=== PATIENT | male | born 1935 | race Caucasian/White ===

== ENCOUNTER 2017-01-02 00:03 | Emergency (ER) | payer MEDICARE, BC ==
[~2017-01-02] VITALS: Ht 175.3 cm; Wt 68.0 kg
[~2017-01-02 00:03] MED LIST: ADALAT CC60 MG; AMOXICILLIN875 MG PO; ASPIR-8181 MG OR; ASPIRIN EC81 MG PO; AVELOX400 MG PO; C 250 PO; COREG12.5 MG OR; COREG6.25 MG PO; ERYTHROMYCIN O3.5 GM OS; FISH OIL1000 MG OR; FISH OIL1000 MG PO; FOSINOPRIL SODI20 MG PO; FOSINOPRIL10 MG OR; HYTRIN2 MG OR; LIPITOR80 MG OR; MONOPRIL20 MG OR; NIFEDIPINE20 MG OR; NIFEDIPINE20 MG PO; PLAVIX75 MG PO; PROTONIX40 M2 OR; TERAZOSIN2 MG OR; TRIAM/HCTZ1 CAP OR; VENTOLIN HFA IN; VITAMIN D1000 UNI1 PO; VITAMIN D1000 UNIT OR; [UNRECOGNIZED DRUG - OTHER] XX
[2017-01-02 00:27] LABS: HEMATOCRIT 38.2 % (39.0-50.0); HEMOGLOBIN 12.7 g/dl (14.0-18.0); IMMATURE GRANULOCYTES 0.3 % (0.0-1.0); MEAN CELL VOLUME 96.5 fL CALC (80.0-100.0); MEAN CORPUSCULAR HGB 32.1 pG CALC (26.0-32.0); MEAN CORPUSCULAR HGB CONC 33.2 g/L CALC (32.0-36.0); NEUT# 4.74 thou/uL (1.82-7.42); RED BLOOD COUNT 3.96 mill/uL (4.70-6.10); RED CELL DISTRI WIDTH 12.9 % (11.5-15.5)
[2017-01-02 00:38] LABS: ALBUMIN 3.8 g/dL (3.2-5.0); ALKALINE PHOSPHATASE 71 u/l (38-126); AMYLASE 92 u/l (30-110); ANION GAP 15 (6-22 (CALC)); BILIRUBIN, TOTAL 0.6 mg/dL (0.0-1.4); BUN 22 mg/dL (8-23); BUN/CREATININE RATIO 26 (12-20 (CALC)); CARBON DIOXIDE 26 mmol/l (22-30); CHLORIDE 101 mmol/l (95-108); CREATININE 0.9 mg/dL (0.7-1.3); GFR > 60 ML/MIN (>=60 (CALC)); GFR FOR AFR.AMER. > 60 ML/MIN (>=60 (CALC)); GLUCOSE 154 mg/dL (82-115); LIPASE 57 u/l (23-300); POTASSIUM 4.1 mmol/l (3.5-5.1); SGOT/AST 27 u/l (19-48); SGPT/ALT 40 u/l (11-66); SODIUM 138 mmol/l (137-146); TOTAL PROTEIN 6.9 g/dL (6.3-8.2)
[2017-01-02 00:50] LABS: MYOGLOBIN 138 ng/mL (0 - 121)
[2017-01-02 01:01] VITALS: BP 144/88
[2017-01-02 01:03] LABS: ACT PARTIAL THROMBO TIME 28.4 SECONDS (20.0-32.5); PROTHROMBIN TIME 10.8 SECONDS (9.0-12.5)
== END 2017-01-02 01:01 | disposition short-term general hospital (02) ==
LOC: ED 00:03
PROVIDERS: Emergency Medicine
DX: I21.3 ST elevation (STEMI) myocardial infarction of unspecified site (principal); I25.10 Atherosclerotic heart disease of native coronary artery without angina pectoris; I10 Essential (primary) hypertension; N40.0 Benign prostatic hyperplasia without lower urinary tract symptoms; I25.2 Old myocardial infarction; Z86.73 Personal history of transient ischemic attack (TIA), and cerebral infarction without residual deficits

== ENCOUNTER 2017-04-29 15:18 | Inpatient (IN) | payer MEDICARE, BC ==
[~2017-04-29] VITALS: Ht 175.3 cm; Wt 67.8 kg
[2017-04-29 16:02] LABS: HEMOGLOBIN 13.2 g/dl (14.0-18.0); IMMATURE GRANULOCYTES 0.2 % (0.0-1.0); MEAN CELL VOLUME 98.5 fL CALC (80.0-100.0); MEAN CORPUSCULAR HGB 32.5 pG CALC (26.0-32.0); NEUT# 3.23 thou/uL (1.82-7.42); RED BLOOD COUNT 4.06 mill/uL (4.70-6.10); RED CELL DISTRI WIDTH 14.1 % (11.5-15.5)
[2017-04-29 16:20] LABS: ALKALINE PHOSPHATASE 71 u/l (38-126); ANION GAP 15 (6-22 (CALC)); BILIRUBIN, TOTAL 0.6 mg/dL (0.0-1.4); BUN 23 mg/dL (8-23); BUN/CREATININE RATIO 26 (12-20 (CALC)); CALCIUM 9.4 mg/dL (8.4-10.2); CARBON DIOXIDE 25 mmol/l (22-30); CHLORIDE 106 mmol/l (95-108); CREATININE 0.9 mg/dL (0.7-1.3); GFR > 60 ML/MIN (>=60 (CALC)); GFR FOR AFR.AMER. > 60 ML/MIN (>=60 (CALC)); GLUCOSE 129 mg/dL (82-115); POTASSIUM 4.5 mmol/l (3.5-5.1); SGOT/AST 29 u/l (19-48); SGPT/ALT 26 u/l (11-66); SODIUM 142 mmol/l (137-146); TOTAL PROTEIN 6.5 g/dL (6.3-8.2)
[2017-04-29 16:31] LABS: MYOGLOBIN 77 ng/mL (0 - 121)
[2017-04-29 17:30] LABS: URINE BILIRUBIN - DIPSTICK NEGATIVE (NEGATIVE); URINE BLOOD DIPSTICK SMALL (NEGATIVE); URINE COLOR YELLOW; URINE GLUCOSE - DIPSTICK NEGATIVE (NEGATIVE); URINE KETONE NEGATIVE (NEGATIVE); URINE LEUK ESTERASE NEGATIVE (NEGATIVE); URINE NITRITE - DIPSTICK NEGATIVE (Negative); URINE PROTEIN - DIPSTICK 100 mg/dL (NEG-TRACE); URINE SPECIFIC GRAVITY >=1.030; URINE UROBILINOGEN - DIPSTICK 0.2 E.U./dL (0.2)
[2017-04-29 17:38] LABS: URINE CLARITY CLEAR; URINE WBC 0-2 WBC/hpf (0-5)
[2017-04-29 17:55] VITALS: BP 192/96
[2017-04-29 19:00] VITALS: BP 174/74
[2017-04-29 20:00] VITALS: BP 134/64
[2017-04-29 21:00] VITALS: BP 135/57
[2017-04-29 22:00] VITALS: BP 111/51
[2017-04-29 23:00] VITALS: BP 124/58
[2017-04-30] VITALS (19 sets, daily range): BP systolic 90–157; BP diastolic 37–73
[2017-04-30 05:33] LABS: HEMATOCRIT 37.7 % (39.0-50.0); HEMOGLOBIN 12.8 g/dl (14.0-18.0); MEAN CELL VOLUME 98.2 fL CALC (80.0-100.0); MEAN CORPUSCULAR HGB 33.3 pG CALC (26.0-32.0); RED BLOOD COUNT 3.84 mill/uL (4.70-6.10); RED CELL DISTRI WIDTH 14.2 % (11.5-15.5)
[2017-04-30 05:47] LABS: ANION GAP 13 (6-22 (CALC)); BUN 24 mg/dL (8-23); BUN/CREATININE RATIO 26 (12-20 (CALC)); CALCIUM 9.2 mg/dL (8.4-10.2); CALCULATED LDLCHOLESTEROL 102 mg/dL (62-129 (CALC)); CARBON DIOXIDE 30 mmol/l (22-30); CHLORIDE 104 mmol/l (95-108); CHOLESTEROL HDL RATIO 2.7 (<4.4 (CALC)); CREATININE 0.9 mg/dL (0.7-1.3); GFR > 60 ML/MIN (>=60 (CALC)); GFR FOR AFR.AMER. > 60 ML/MIN (>=60 (CALC)); GLUCOSE 99 mg/dL (82-115); HDL CHOLESTEROL 65 mg/dL (>=40); MAGNESIUM 1.8 mg/dL (1.6-2.3); POTASSIUM 3.9 mmol/l (3.5-5.1); SODIUM 142 mmol/l (137-146); TOTAL CHOLESTEROL 177 mg/dl (0-199); TOTAL TRIGLYCERIDES 47 mg/dl (30-149); VLDL CHOLESTROL 9 mg/dl (0-38 (CALC))
[2017-05-01] VITALS (12 sets, daily range): BP systolic 94–148; BP diastolic 41–73
[2017-05-02] VITALS (10 sets, daily range): BP systolic 90–145; BP diastolic 44–77
[2017-05-02 05:20] LABS: HEMATOCRIT 39.8 % (39.0-50.0); HEMOGLOBIN 13.1 g/dl (14.0-18.0); IMMATURE GRANULOCYTES 0.3 % (0.0-1.0); MEAN CELL VOLUME 97.3 fL CALC (80.0-100.0); MEAN CORPUSCULAR HGB CONC 32.9 g/L CALC (32.0-36.0); NEUT# 4.51 thou/uL (1.82-7.42); RED BLOOD COUNT 4.09 mill/uL (4.70-6.10); RED CELL DISTRI WIDTH 13.9 % (11.5-15.5)
[2017-05-02 05:34] LABS: ANION GAP 6 (6-22 (CALC)); BUN 21 mg/dL (8-23); BUN/CREATININE RATIO 28 (12-20 (CALC)); CARBON DIOXIDE 34 mmol/l (22-30); CHLORIDE 101 mmol/l (95-108); CREATININE 0.8 mg/dL (0.7-1.3); GFR > 60 ML/MIN (>=60 (CALC)); GFR FOR AFR.AMER. > 60 ML/MIN (>=60 (CALC)); GLUCOSE 104 mg/dL (82-115); POTASSIUM 3.6 mmol/l (3.5-5.1); SODIUM 137 mmol/l (137-146)
[2017-05-03 05:32] LABS: HEMATOCRIT 41.9 % (39.0-50.0); HEMOGLOBIN 14.3 g/dl (14.0-18.0); IMMATURE GRANULOCYTES 0.1 % (0.0-1.0); MEAN CELL VOLUME 96.5 fL CALC (80.0-100.0); MEAN CORPUSCULAR HGB 32.9 pG CALC (26.0-32.0); MEAN CORPUSCULAR HGB CONC 34.1 g/L CALC (32.0-36.0); NEUT# 4.96 thou/uL (1.82-7.42); RED BLOOD COUNT 4.34 mill/uL (4.70-6.10); RED CELL DISTRI WIDTH 13.7 % (11.5-15.5)
[2017-05-03 06:17] LABS: ANION GAP 17 (6-22 (CALC)); BUN 26 mg/dL (8-23); BUN/CREATININE RATIO 31 (12-20 (CALC)); CARBON DIOXIDE 28 mmol/l (22-30); CHLORIDE 100 mmol/l (95-108); CREATININE 0.8 mg/dL (0.7-1.3); GFR > 60 ML/MIN (>=60 (CALC)); GFR FOR AFR.AMER. > 60 ML/MIN (>=60 (CALC)); GLUCOSE 123 mg/dL (82-115); POTASSIUM 3.7 mmol/l (3.5-5.1); SODIUM 141 mmol/l (137-146)
[2017-05-03 07:58] VITALS: BP 135/62
[2017-05-03 11:15] VITALS: BP 129/73
[2017-05-03 15:23] VITALS: BP 130/60
[2017-05-03] MEDS ORDERED: LASIX 40 MG40 MG/TAB PO (16:43)
[2017-05-03] MEDS ORDERED: KLOR-CON 1010 MEQ PO (16:43)
== END 2017-05-03 18:00 | disposition home health service (06) | DRG 292 ==
LOC: ED 15:18 → ED-I 17:02 → ED 17:06 → ICU 17:07 → MS2 05-02 16:52
PROVIDERS: Emergency Medicine; Internal Medicine; ADMIT Internal Medicine; ATTEND Internal Medicine
PROC: 5A09357 Assistance with Respiratory Ventilation, Less than 24 Consecutive Hours, Continuous Positive Airway Pressure (ICD-10-PCS; principal; 2017-04-29)
DX: I11.0 Hypertensive heart disease with heart failure (principal); E87.2 Acidosis; I65.23 Occlusion and stenosis of bilateral carotid arteries; F03.90 Unspecified dementia, unspecified severity, without behavioral disturbance, psychotic disturbance, mood disturbance, and anxiety; I50.23 Acute on chronic systolic (congestive) heart failure; J43.9 Emphysema, unspecified; I16.0 Hypertensive urgency; I25.2 Old myocardial infarction; I25.10 Atherosclerotic heart disease of native coronary artery without angina pectoris; R09.02 Hypoxemia; I25.5 Ischemic cardiomyopathy; E78.5 Hyperlipidemia, unspecified; I08.0 Rheumatic disorders of both mitral and aortic valves; Z87.891 Personal history of nicotine dependence; Z98.61 Coronary angioplasty status; Z91.19 Patient's noncompliance with other medical treatment and regimen
CPT/HCPCS: J2060

== ENCOUNTER 2017-06-18 12:07 | Emergency (ER) | payer MEDICARE, BC ==
[~2017-06-18] VITALS: Ht 175.3 cm; Wt 69.6 kg
[~2017-06-18 12:07] MED LIST changes: -ASPIRIN EC81 MG PO; +BAYER ASPIRIN E81 MG PO; +KLOR-CON 1010 MEQ PO; +LASIX 40 MG40 MG/TAB PO
[2017-06-18] MEDS ORDERED: LASIX 40 MG TAB40 MG PO (12:24)
[2017-06-18] MEDS ORDERED: ATORVASTATIN CA80 MG PO (12:26)
[2017-06-18] MEDS ORDERED: AUGMENTIN875TAB PO (13:00)
[2017-06-18 13:10] VITALS: BP 155/72
== END 2017-06-18 13:10 | disposition home or self-care (01) ==
LOC: ED 12:07
DX: H60.12 Cellulitis of left external ear (principal); B95.1 Streptococcus, group B, as the cause of diseases classified elsewhere; X58.XXXA Exposure to other specified factors, initial encounter; Y92.009 Unspecified place in unspecified non-institutional (private) residence as the place of occurrence of the external cause

== ENCOUNTER 2019-03-16 13:17 | Inpatient (IN) | payer MEDICARE, BC ==
[~2019-03-16] VITALS: Ht 175.3 cm; Wt 74.1 kg
[~2019-03-16 13:17] MED LIST changes: +ATORVASTATIN CA80 MG PO; +AUGMENTIN875TAB PO; +LASIX 40 MG TAB40 MG PO
--- NOTE | 2019-03-16 13:17 | NUR ---
PT ARRIES VIA EMS STRETCHER ALERT TO PERSON ONLY. HAD UNWITNESSED SYNCOAAL FALL IN BATHROOM OF SENIOR CARE, FOLLOWED BY EMESIS OF UNDIGESTED FOOD.
--- NOTE | 2019-03-16 13:35 | NUR ---
MANUAL BP 70/40 TO RIGHT UPPER EXTREMITY.
--- NOTE | 2019-03-16 13:50 | NUR ---
KYLIE PHILIPPE INITIATED. PT STATING HE FEELS HE NEEDS TO HAVE A BM. IV FLUIDS INFUSING TO RIGHT AC. MD AWARE OF CONTINUED HYPOTENSION.
--- NOTE | 2019-03-16 14:00 | NUR ---
PT VOMITED APPROX 200 ML YELLOW ORANGE CLEAR LIQUID WITH SOME UNDIGESTED PARTICLES NOTED. AWARE
[2019-03-16 14:13] LABS: HEMATOCRIT 35.2 % (39.0-50.0); HEMOGLOBIN 11.5 g/dl (14.0-18.0); IMMATURE GRANULOCYTES 0.3 % (0.0-5.0); MEAN CELL VOLUME 98.9 fL CALC (80.0-100.0); MEAN CORPUSCULAR HGB 32.3 pG CALC (26.0-32.0); MEAN CORPUSCULAR HGB CONC 32.7 g/L CALC (32.0-36.0); NEUT# 1.66 thou/uL (1.82-7.42); RED BLOOD COUNT 3.56 mill/uL (4.70-6.10); RED CELL DISTRI WIDTH 13.3 % (11.5-15.5)
[2019-03-16 14:35] LABS: ALBUMIN 3.5 g/dL (3.2-5.0); ALKALINE PHOSPHATASE 74 u/l (38-126); ANION GAP 12 (6-22 (CALC)); BILIRUBIN, TOTAL 0.7 mg/dL (0.0-1.4); BUN 28 mg/dL (8-23); BUN/CREATININE RATIO 23 (12-20 (CALC)); CARBON DIOXIDE 26 mmol/l (22-30); CHLORIDE 104 mmol/l (95-108); CREATININE 1.2 mg/dL (0.7-1.3); GFR 58 ML/MIN (>=60 (CALC)); GFR FOR AFR.AMER. > 60 ML/MIN (>=60 (CALC)); POTASSIUM 4.6 mmol/l (3.5-5.1); SODIUM 138 mmol/l (137-146); TOTAL PROTEIN 6.4 g/dL (6.3-8.2)
--- NOTE | 2019-03-16 14:42 | NUR ---
REMAIN HYPOTENSIVE MD AWARE SECOND LITER BOLUS STARTED
[2019-03-16 15:08] LABS: SGOT/AST 39 u/l (19-48)
--- NOTE | 2019-03-16 15:20 | NUR ---
RECTAL TEMP 95.3 MD AWARE BP IMPROVING SECOND LITER ALMOST COMPLETE
[2019-03-16] MEDS ORDERED: LASIX 40 MG TAB40 MG PO (15:24)
[2019-03-16] MEDS ORDERED: LISINOPRIL20 MG PO (15:25)
[2019-03-16] MEDS ORDERED: POTASSIUM CHLO10 MEQ PO (15:27)
[2019-03-16] MEDS ORDERED: CARVEDILOL25 MG PO (15:28)
[2019-03-16] MEDS ORDERED: VITAMIN B-12500 MCG PO (15:28)
[2019-03-16] MEDS ORDERED: QUETIAPINE FUMA25 MG PO (15:29)
--- NOTE | 2019-03-16 15:58 | NUR ---
PT FOUND STANDING BESIDE THE STRETCHER WITH STOOL ALL OVER THE FLOOR AND BED AND PT, TO BSC, LINENS CHANGED FLOOR AND PT CLEANED AND BACK TO BED, BP IMPROVING PT REQUIRES FREQUENT REMINDERS FOR CARE.
--- NOTE | 2019-03-16 16:53 | NUR ---
PT BACK FROM RADIOLOGY REORIENTED TO PLACE AND PLAN OF CARE, BP IMPROVED SEE INTERVENTIONS, CALL OTTO WITHIN REACH
--- NOTE | 2019-03-16 17:18 | NUR ---
SON AT BEDSIDE, PT REMAINS CONFUSED AND FORGETFUL, CALL OTTO WITHIN REACH
--- NOTE | 2019-03-16 17:41 | NUR ---
OOB TO BESC WITH MOD ASSIST, SON REMAINS AT BEDSIDE
--- NOTE | 2019-03-16 17:50 | NUR ---
PT BACK TO BED WITH SAME ASSIST, CONTINENT OF LOOSE WATERY BROWN STOOL, ASSISTED WITH CAROL CARE AND BACK TO BED, CALL OTTO WITHIN REACH, SON REMAINS AT BEDSIDE
--- NOTE | 2019-03-16 18:31 | NUR ---
OOB TO BSC
--- NOTE | 2019-03-16 19:00 | NUR ---
REPORT RECEIVED FROM MAREK FLORES. PATIENT RESTING ON STRETCHER, RECEIVING IVF BOLUS. WILL CONTINUE TO MONITOR BLOOD PRESSURE FOR EFFECT.
--- NOTE | 2019-03-16 19:20 | NUR ---
PATIENT SBP REMAINS BELOW 100 AFTER IVF BOLUS. CALL PLACED TO DR TUCKER. STATUS DISCUSSED AND PATIENT ADMISSION CHANGED TO ICU.
--- NOTE | 2019-03-16 19:35 | NUR ---
REPORT ATTEMPTED, NURSE TO CALL BACK.
--- NOTE | 2019-03-16 20:30 | NUR ---
PATIENT FOUND STANDING UP AT THE SIDE OF STRETCHER, PATIENT HAS REMOVED HIS EMS IV TO LEFT ARM AND HAS HAD A SMALL BROWN LIQUID STOOL. PATIENT ASSISTED BACK TO SITTING ON STRETCHER AND PATIENT CLEANED FROM HEAD TO TOE OF ALL BLOOD AND STOOL. PLACED BACK ONTO STRETCHER. GIVEN WARM BLANKET.
--- NOTE | 2019-03-16 20:44 | NUR ---
REPORT TO KHALIDA, PATIENT READIED FOR TRANSPORT TO FLOOR.
--- NOTE | 2019-03-16 20:55 | NUR ---
83 yr old white male admitted icu5 per stretcher from er. transferred x3 to bed. bed weight obtained. quality assurance monitor chassis shows sinus rhythm. #18 rac ns began @ 50cchr as ordered. history obtained per er & old record. oriented to room. fall precautions initiated. bed alarm activated.
[2019-03-16 21:00] VITALS: BP 112/50
[2019-03-16 21:15] VITALS: BP 91/36
[2019-03-16 21:30] VITALS: BP 94/61
[2019-03-16 22:00] VITALS: BP 100/50
--- NOTE | 2019-03-16 22:00 | NUR ---
inc of stool in bed. assisted to bsc. voided per bsc then to bed.
--- NOTE | 2019-03-16 23:00 | NUR ---
incont of stool in bed. assisted to bsc. voided then back to bed. bed alarm cont.
[2019-03-17] VITALS (13 sets, daily range): BP systolic 77–111; BP diastolic 32–72
--- NOTE | 2019-03-17 00:01 | NUR ---
eyes closed. no distress. school lunch monitor shows sinus rhythm pvcs.
--- NOTE | 2019-03-17 02:00 | NUR ---
resting quietly. resps even & unlabored. no apparent distress.
--- NOTE | 2019-03-17 03:30 | NUR ---
incont of watery stool in bed. assisted to bsc, voided then back to bed.
--- NOTE | 2019-03-17 04:40 | NUR ---
lab here. blood drawn.
[2019-03-17 05:00] LABS: HEMATOCRIT 33.7 % (39.0-50.0); IMMATURE GRANULOCYTES 0.7 % (0.0-5.0); MEAN CELL VOLUME 98.5 fL CALC (80.0-100.0); MEAN CORPUSCULAR HGB 32.2 pG CALC (26.0-32.0); MEAN CORPUSCULAR HGB CONC 32.6 g/L CALC (32.0-36.0); NEUT# 10.08 thou/uL (1.82-7.42); RED BLOOD COUNT 3.42 mill/uL (4.70-6.10); RED CELL DISTRI WIDTH 14.2 % (11.5-15.5)
[2019-03-17 05:14] LABS: CREATININE 1.5 mg/dL (0.7-1.3); POTASSIUM 4.3 mmol/l (3.5-5.1)
--- NOTE | 2019-03-17 06:45 | NUR ---
RECIEVED REPORT FROM KAREN GAXIOLA. ASSUMED PT CARE.
--- NOTE | 2019-03-17 08:00 | NUR ---
DIETARY ON UNIT, PT REPOSITIONED. BREAKFAST TRAY SET UP.
--- NOTE | 2019-03-17 08:48 | NUR ---
PT ASSISTED TO USE URINAL IN BED, U/A SAMPLE COLLECTED.
--- NOTE | 2019-03-17 09:00 | NUR ---
DR. BREWER AT BEDSIDE FOR ASSESSMENT AND TO DISCUSS PLAN OF CARE.
--- NOTE | 2019-03-17 09:30 | NUR ---
ASSISTED PT WITH URINAL, PT INC OF BM, MODERATE LOOSE BROWN BM. GOOD CAROL CARE PROVIDED. LINENS CHANGED. PT TOLERATED WELL. BACK TO BED. BED ALARM IN PLACE. CALL LIGHT IN REACH. WILL MONITOR.
[2019-03-17 10:09] LABS: URINE BILIRUBIN - DIPSTICK NEGATIVE (NEGATIVE); URINE BLOOD DIPSTICK MODERATE (NEGATIVE); URINE COLOR YELLOW; URINE GLUCOSE - DIPSTICK NEGATIVE (NEGATIVE); URINE KETONE NEGATIVE (NEGATIVE); URINE LEUK ESTERASE TRACE (NEGATIVE); URINE NITRITE - DIPSTICK NEGATIVE (Negative); URINE PROTEIN - DIPSTICK NEGATIVE (NEG-TRACE); URINE UROBILINOGEN - DIPSTICK 0.2 E.U./dL (0.2)
[2019-03-17 10:11] LABS: URINE WBC 0-2 WBC/hpf (0-5)
--- NOTE | 2019-03-17 10:30 | NUR ---
PT RESTING IN BED WITH EYES CLOSED. RESPIRATIONS EVEN/UNLABORED. CALL LIGHT IN REACH. WILL MONITOR.
--- NOTE | 2019-03-17 11:40 | NUR ---
DIETARY ON UNIT, LUNCH TRAY SET UP. ASSITED PT WITH FEEDING. PT TOOK 1 BITE AND DECLINED TRAY. PT OFFERED AND ACCEPTED ENSURE.
--- NOTE | 2019-03-17 12:00 | NUR ---
DR. BREWER AT BEDSIDE FOR ASEESSMENT AND TO DISCUSS PLAN OF CARE, NEW ORDERS RECIEVED.
--- NOTE | 2019-03-17 13:35 | NUR ---
SON ARRIVED AT BEDSIDE.
--- NOTE | 2019-03-17 14:15 | NUR ---
assisted pt with urinal. pt tolerated well. pt then assisted back to bed. call light in reach, bed alarm intact. will monitor.
--- NOTE | 2019-03-17 15:30 | NUR ---
PT ASSISTED WITH URINAL, WHILE URINAL IN PLACE, PT INC OF BOWEL. COMPLETE BED BATH, GARMENT AND BED LINEN CHANGE DONE PT TOLERATED WELL. SON REMAINS AT BEDSIDE. CALL LIGHT IN REACH. WILL MONITOR.
--- NOTE | 2019-03-17 16:00 | NUR ---
PT RESTING IN BED WITH EYES CLOSED. RESPIRATIONS EVEN/UNLABORED. CALL LIGHT IN REACH. BED ALARM INTACT.
--- NOTE | 2019-03-17 17:38 | NUR ---
DIETARY ON UNIT, PT OFFERED AND REFUSED TRAY, STATED "I JUST WANT TO SLEEP NOW. " WILL HOLD TRAY IN CASE PT RECONSIDERS. RESPIRATIONS EVEN/UNLABORED. CALL LIGHT IN REACH.
--- NOTE | 2019-03-17 18:15 | NUR ---
PT RESTING WITH EYES CLOSED, CONTINUES TO REFUSED DINNER TRAY. OFFERS NO COMPLAINTS AT THIS TIME. CALL LIGHT IN REACH. WILL MONITOR.
--- NOTE | 2019-03-17 19:00 | NUR ---
REPORT RECEIVED FROM BLAIR RANDLE. PT RESTING IN BED SEMI FOWLERS WITH EYES CLOSED AND NO SIGN OF DISTRESS. RESPIRATIONS EVEN AND UNLABORED ON ROOM AIR. SAFEY MEASURES IN PLACE. CALL LIGHT WITHIN REACH.
--- NOTE | 2019-03-17 19:30 | NUR ---
PT SAT HIMSELF UP ON THE EDGE OF THE BED STATING HE IS READY TO GET UP; ORIENTED TO NAME AND ; STATES HE DOES NOT KNOW WHERE HE IS OR THE YEAR. EASILY REORIENTED; COOPERATIVE AND PLEASANT. ASSISTED TO BSC FOR WATERY BOWEL MOVEMENT WITH ONE PERSON ASSIST. ASSESSMENT COMPLETED AT THIS TIME. DENIES PAIN. LUNGS ARE CLEAR; PULSES THREADY; HYPOTENSIVE AND ASYMPTOMATIC; ABD DISTENDED AND SOFT WITH UMBILICAL HERNIA; IV SITE APPEARS HEALTHY AND IV FLUIDS INFUSING WIHTOUT DIFFICULTY. CEE HOSE INTACT TO BLE; SKIN INTACT WITH BRUISING TO BUE. ASSISTED BACK INTO BED AND PT DRANK AN ENTIRE ENSURE. NOW RESTING COMFORTABLY; HALLUCINATING THAT THERE IS A HOT DOG ON THE CEILING; STATES, "IF THAT HOT DOG GETS ANY CLOSER I'M GOING TO EAT IT." LIGHTS TURNED OFF AND PT ENCOURGED TO RELAX. SAFETY MEASURES IN PLACE INCLUDING BED ALARM. NEEDS ANTICIPATED BY STAFF.
--- NOTE | 2019-03-17 21:01 | NUR ---
PT FREQUENLTY REMOVING PULSE OX MONITOR; WHEN INTACT SPO2 IS 92% ON ROOM AIR. WILL CHECK INTERMITTENTLY.
[2019-03-18] VITALS (14 sets, daily range): BP systolic 82–161; BP diastolic 43–98
--- NOTE | 2019-03-18 00:27 | NUR ---
PT RESTING QUIETLY WITH EYES CLOSED AND NO SIGNS OF DISTRESS. UP ONCE MORE TO BSC TO VOID; DOES NOT USE CALL LIGHT. VSS. SR WITH PVCS ON TELEMETRY. CALL LIGHT WITHIN REACH.
--- NOTE | 2019-03-18 00:51 | NUR ---
TYLENOL GIVEN FOR TEMP OF 100.5. INCONTINENT OF STOOL. ATTEMPTING TO GET OUT OF BED STATING, "I'VE GOT STUFF TO DO. THINGS ON MY MIND." WILL CONTINUE TO MONITOR.
--- NOTE | 2019-03-18 01:23 | NUR ---
PT HAD SOME EXERTIONAL SOB WITH TURNING AND REPOSITIONING FOR HYGEINE; FACIAL FLUSHING AND TEMPORARY STRIDOR NOTED; LUNGS REMAINED CLEAR; SPO2 94% ON ROOM AIR. WITH REST PTS RESPIRATIONS ARE NOW EVEN AND UNLABORED; BLANKET REMOVED AND COOL CLOTH ON HEAD. WILL CONTINUE TO MONITOR.
--- NOTE | 2019-03-18 04:00 | NUR ---
PT ASLEEP IN SEMI FOWLERS POSITION. CURTAIN OPEN FOR GOOD VIEW OF PT. 94% SP02 ON RA; BP 95/48. IV SITE APPEARS HEALTHY.
[2019-03-18 05:41] LABS: HEMATOCRIT 30.2 % (39.0-50.0); HEMOGLOBIN 9.7 g/dl (14.0-18.0); MEAN CELL VOLUME 100.3 fL CALC (80.0-100.0); MEAN CORPUSCULAR HGB 32.2 pG CALC (26.0-32.0); MEAN CORPUSCULAR HGB CONC 32.1 g/L CALC (32.0-36.0); RED BLOOD COUNT 3.01 mill/uL (4.70-6.10); RED CELL DISTRI WIDTH 14.2 % (11.5-15.5)
--- NOTE | 2019-03-18 06:00 | NUR ---
NO ACUTE CHANGES IN CONDITION THROUGHOUT THE NIGHT. PT REMAINS ASLEEP. NSR WITH PVCS AND IVCD ON METAL DRILL PRESS OPERATOR.
[2019-03-18 06:16] LABS: ALKALINE PHOSPHATASE 54 u/l (38-126); BUN 47 mg/dL (8-23); BUN/CREATININE RATIO 37 (12-20 (CALC)); CHLORIDE 110 mmol/l (95-108); CREATININE 1.3 mg/dL (0.7-1.3); GFR 53 ML/MIN (>=60 (CALC)); GFR FOR AFR.AMER. > 60 ML/MIN (>=60 (CALC)); SODIUM 139 mmol/l (137-146)
[2019-03-18 06:17] LABS: ALBUMIN 2.6 g/dL (3.2-5.0); ANION GAP 11 (6-22 (CALC)); BILIRUBIN, TOTAL 1.2 mg/dL (0.0-1.4); CARBON DIOXIDE 22 mmol/l (22-30); SGOT/AST 79 u/l (19-48)
--- NOTE | 2019-03-18 06:45 | NUR ---
RECIEVED REPORT FROM BLAIR ORNELAS. ASSUMED PT CARE.
--- NOTE | 2019-03-18 07:45 | NUR ---
PT RESTING IN BED, ALERT TO SELF. ABLE TO MAKE MOST NEEDS KNOWN. RESPIRATIONS EVEN/UNLABORED, SA02@96%RA. LS CLEAR THROUGHOUT. ABDOMEN SOFT, DISTENDED, HERNIA PRESENT. PT DENIES CP, SOB OR DISTRESS AT THIS TIME. NS@5OML/HR INFUSING, NO S/S OF INFILTRATION OR INFECTION NOTED AT SITE. PT REMAIN INC OF B&B, SOMETIMES USING URINAL AT BEDSIDE. PT CONTIUES WITH SOME CONFUSION, EASILY REDIRECTS. BED ALARM INTACT. CALL LIGHT IN REACH. WILL MONITOR CLOSELY.
--- NOTE | 2019-03-18 08:00 | NUR ---
BREAKFAST TRAY SET UP. STAFF ASSISTED WITH FEEDING.
--- NOTE | 2019-03-18 10:07 | NUR ---
PT REPOSITIONED, INC OF URINE. GOOD PERICARE PREVIDED. PT TOLERATED WELL CALL LIGHT IN REACH. WILL MONITOR.
--- NOTE | 2019-03-18 11:31 | NUR ---
PT INC OF B&b, COMPLETE BED BATH, GARMENT AND LINEN CHANGE DONE, PT ASSISTED TO RECLINER TO SIT UP AWHILE FOR LUNCH. WILL MONITOR CLOSELY.
--- NOTE | 2019-03-18 12:00 | NUR ---
ADOLFO DREW AT BEDSIDE FOR ASSESSMENT AND TO DISCUSS PLAN OF CARE. PT REMAINS CONFUSED AT THIS TIME.
--- NOTE | 2019-03-18 13:30 | NUR ---
SON ARRIVED AT BEDSIDE.
--- NOTE | 2019-03-18 13:36 | NUR ---
PT SON, CURTIS LEFT TO GO TO [facility] TO GET DENTURES. WILL RETURN SHORTLY.
--- NOTE | 2019-03-18 14:30 | NUR ---
PT SON ARRIVED BACK AT BEDSIDE.
--- NOTE | 2019-03-18 15:00 | NUR ---
FLU SWAB OBTAINED AND SENT TO LAB.
--- NOTE | 2019-03-18 15:04 | NUR ---
RADIOLOGY AT BEDSIDE FOR CXR.
--- NOTE | 2019-03-18 16:15 | NUR ---
PT ASSITED WITH URINAL, DARK YELLOW URINE NOTED.
--- NOTE | 2019-03-18 17:30 | NUR ---
DINNER TRAY SET UP.
--- NOTE | 2019-03-18 18:11 | NUR ---
PT RESTING IN BED WATCHING FOOTBALL ON TV. RESPIRATIONS EVEN/UNLABORED. CALL LIGHT IN REACH. WILL MONITOR.
--- NOTE | 2019-03-18 19:00 | NUR ---
REPORT RECEIVED FROM BLAIR RANDLE. PT RESTING IN SEMI FOWLERS WITY EYES CLOSED AND NO SIGNS OF DISTRESS. RESPIRATIONS EVEN AND UNLABORED ON ROOM AIR. IV FLUIDS INFUSING WITHOUT DIFFICULTY AT 50ML/HR; IV SITE APPEARS HEALTHY. BP NOW 141/41. SAFETY MEASURES IN PLACE INCLUDING BED ALARM. CALL LIGHT WITHIN REACH.
--- NOTE | 2019-03-18 21:16 | NUR ---
PT VOIDED 300 ML OF DARK YELLOW URINE IN URINAL. TOOK PO MEDICATIONS WITHOUT DIFFICULTY INCLUIDNG COREG WITH BP OF 122/63. PT IS PLEASANTLY CONFUSED. DENIES PAIN. RESPIRATIONS EVEN AND UNLABORED ON ROOM AIR. NSR WITH PVCS AND IVCD ON TELEMETRY HEART RATE IN THE 70'S. NEEDS ANTICIPATED BY STAFF.
--- NOTE | 2019-03-18 23:07 | NUR ---
PT RESTLESS, REMOVING COVERS, AND REPORTS THAT HE IS HAVING TROUBLE BREATHING WITH AUDIBLE UPPER AIRWAY WHEEZING. RT AT BEDSIDE FOR BREATHING TREATMENT.
--- NOTE | 2019-03-18 23:51 | NUR ---
BREATHING IS IMPROVED AND NO SOB; SPO2 95% ON ROOM AIR. PT IS ANXIOUS; REMOVED PULSE OX MONITOR; REMOVING BED SHEETS; CALLING FOR NURSE STATING, "I'VE GOT TO GET OUT OF HERE." REORIENTED TO PLACE AND TIME; REASON FOR HOSPITAL STAY. ENOCURAGED RELAXATION TECHNIQUES AND COVERED PT. WILL CONTINUE TO MONITOR
[2019-03-19] VITALS (22 sets, daily range): BP systolic 91–176; BP diastolic 52–101
--- NOTE | 2019-03-19 02:00 | NUR ---
PT STILL AWAKE MOVING AROUND IN THE BED AND MOVING FEET OFF THE MATTRESS SETTING OFF THE BED ALARM. STATES THAT HE WANTS TO GO HOME. DENIES PAIN. NO INCONTINENCE IN BRIEF. REPOSITIONED WITH TEMPORARY EFFECT. RESPIRATIONS EVEN AND UNLABORED ON ROOM AIR. SAFETY MEASURES IN PLACE. CURTAIN DRAWN FOR GOOD VISUAL OF PATIENT.
--- NOTE | 2019-03-19 03:58 | NUR ---
PT VOIDED 275ML OF DARK YELLOW URINE IN URINAL WITH ASSISTANCE. CONTINES TO VERBALIZE THAT HE WANTS TO GO HOME. ENCOURAGED TO RELAX AND TRY TO GET SOME SLEEP. VSS.
[2019-03-19 06:03] LABS: HEMATOCRIT 34.1 % (39.0-50.0); HEMOGLOBIN 11.2 g/dl (14.0-18.0); IMMATURE GRANULOCYTES 0.7 % (0.0-5.0); MEAN CELL VOLUME 99.1 fL CALC (80.0-100.0); MEAN CORPUSCULAR HGB 32.6 pG CALC (26.0-32.0); MEAN CORPUSCULAR HGB CONC 32.8 g/L CALC (32.0-36.0); NEUT# 8.58 thou/uL (1.82-7.42); RED BLOOD COUNT 3.44 mill/uL (4.70-6.10); RED CELL DISTRI WIDTH 13.9 % (11.5-15.5)
[2019-03-19 06:30] LABS: ANION GAP 11 (6-22 (CALC)); BUN 32 mg/dL (8-23); BUN/CREATININE RATIO 30 (12-20 (CALC)); CARBON DIOXIDE 22 mmol/l (22-30); CHLORIDE 110 mmol/l (95-108); CREATININE 1.1 mg/dL (0.7-1.3); GFR > 60 ML/MIN (>=60 (CALC)); GFR FOR AFR.AMER. > 60 ML/MIN (>=60 (CALC)); POTASSIUM 4.3 mmol/l (3.5-5.1); SODIUM 138 mmol/l (137-146)
--- NOTE | 2019-03-19 06:30 | NUR ---
CAROL CARE PROVIDED FOR PT; DURING DENTURE AND MOUTH CARE PT BEGAN TO PROJECTILE VOMIT COPIOUS AMOUNTS OF BROWN WATERY EMESIS; ABDOMEN MORE DISTENDED THAN START OF SHIFT AND FIRM; NO BOWEL MOVEMENTS THROUGHOUT THE NIGHT. DR. CARIAS NOTIFIED OF CHANGE IN CONDITION. NEW ORDERS RECEIVED. SAL[place] SUMP NG TUBE INSERTED INTO LEFT NARE; 65 AT THE NOSE AND SECURED TO NOSE; APPLIED TO LOW INTERMITTENT SUCTION. PT TRANSPORTED TO CT VIA WHEELCHAIR FOR STAT CT SCAN WITH CONTRAST. DR. REGALADO NOTIFIED OF CONSULTATION.
--- NOTE | 2019-03-19 07:15 | NUR ---
PT BACK TO ROOM FROM CT AND NOW RESTING WITH HOB ELEVATED. NG TUBE RECONNECTED TO LOW INTERMITTENT SUCTION. ABDOMEN REMAINS DISTENDED AND FIRM WITH BOWEL SOUNDS. PT ALERT AND TOLERATING ALL PROCEDURES WELL. SAFETY MEASURES IN PLACE.
--- NOTE | 2019-03-19 07:15 | NUR ---
RECIEVED REPORT FROM BLAIR ORNELAS. ASSUMED PT CARE.
--- NOTE | 2019-03-19 07:30 | NUR ---
PT PULLED NG TUBE OUT, NOTED PULLING AT B/P CUFF, O2 MONITOR, PT CONFUSED. UNABLE TO REDIRECT. PT ATTEMPTING TO PULL IV OUT. PT STATED. " YOU HAVE THE WRONG PERSON. i AM LEAVING." TRIED REORIENTING. PT THINKS HE IS IN [place] AND IT IS 1977. WILL MONITOR.
--- NOTE | 2019-03-19 07:45 | NUR ---
NG TUBE PLACED TO R NARE, VERIFIED VIA AUSCULTATION. PLACED ON INTERMITTENT SUCTION WITH BROWN COFFE GROUND IN COLLECTION BASIN. PT TOLERATED WELL. HOB UP. PT REDIRECTED AND EDUCATED ON LEAVING EQUIPMENT ALONE. PT CONTINUES PULLING AND ATTEMPTING TO DISLODGE EQUIPMENT.
--- NOTE | 2019-03-19 08:00 | NUR ---
NOTIFIED ADOLFO DREW OF PT PULLING AT EQUIPMENT AND UNABLE TO REDIRECT. PT CONTINUES TOUCHING AND PULLING AT IV SITE, MONITORING DEVICES AND NG TUBE. NEW ORDERS RECIEVED FOR BILAT SOFT WRIST RESTRAINTS. WILL MONITOR CLOSELY.
--- NOTE | 2019-03-19 09:05 | NUR ---
NOTIFIED BY BLAIR Garrison MGR. THAT OR TEAM CALLED IN AND ETA FOR DR. REGALADO IS 45MIN. PT UPDATED ON STATUS.
--- NOTE | 2019-03-19 09:10 | NUR ---
NOTIFIED PT SON CURTIS CARLIN FOR CONSENT; CONSENT GRANTED OVER THE PHONE BY THIS POLICY LOAN CALCULATOR AND BLAIR REESE. ADOLFO DREW AT DESK AND ALSO RECIEVED CONSENT FROM SON AND ANSWER QUESTIONS AND CONCERNS. PT SON STATED HE WOULD HEAD UP HERE CHRISTOPHER.
--- NOTE | 2019-03-19 09:20 | NUR ---
ADOLFO DREW AT BEDSIDE FOR ASSESSMENT AND TO DISCUSS PLAN OF CARE. PT REMAINS IN SOFT WRIST RESTRAINTS, RADIAL PULSES+. PT RESTING IN BED WILL MONITOR.
[2019-03-19 09:29] LABS: PROTHROMBIN TIME 10.2 SECONDS (9.0-12.5)
--- NOTE | 2019-03-19 09:57 | NUR ---
ALIX COSTUME CUTTER AT BEDSIDE FOR ASSESSMENT AND TO DISCUSS POC.
--- NOTE | 2019-03-19 10:05 | NUR ---
DR. REGALADO AT BEDSIDE FOR ASSESSMENT AND TO DISCUSS POC.
--- NOTE | 2019-03-19 10:20 | NUR ---
BLAIR RUVALCABA FROM OR TEAM AT BEDSIDE, PT TRANSPORTED TO OR VIA BED. PT TOLERATING WELL.
--- NOTE | 2019-03-19 13:05 | NUR ---
PT BACK FROM OR, REPORT GIVEN FROM BLAIR HARRISON. PT TOLERATED WELL. PT ALERT TO SELF, REORIENTED FREQ. PT REMAINS IN BILAT SOFT WRIST RESTRAINTS, PT HAS BRADSHAW, PATENT, DRAINING TO BSD VIA GRAVITY, PALE YELLOW URINE. DRSG TO L ABDOMEN CDI. PT OFFERS NO COMPLAINTS AT THIS TIME. CALL LIGHT IN REACH. WILL MONITOR.
--- NOTE | 2019-03-19 13:14 | NUR ---
SON ARRIVED AT BEDSIDE
--- NOTE | 2019-03-19 14:03 | NUR ---
NOTIFIED ADOLFO DREW OF PT INCREASED B/P. NEW ORDERS RECIEVED. SON REMAINS AT BEDSIDE. CALL LIGHT IN REACH. WILL MONITOR.
--- NOTE | 2019-03-19 15:38 | NUR ---
PT RESTING IN BED WITH EYES CLOSED. NG TUBE DRAINGING COFFE GROUND TO BSD. BRADSHAW REMAINS PATENT, DRAINING TO BSD VIA GRAVITY. RESPIRATIONS EVEN/UNLABORED. SON REMAINS AT [facility]. CALL LIGHT IN REACH . WILL MONITOR.
--- NOTE | 2019-03-19 16:00 | NUR ---
SON LEFT BEDSIDE, STATED HE WILL RETURN TOMORROW.
--- NOTE | 2019-03-19 18:08 | NUR ---
PT RESTING IN BED, BRADSHAW REMAINS PATENT, DRAINING TO BSD VIA GRAVITY. RESPIRATIONS EVEN/UNLABORED. CALL LIGHT IN REACH. MONITORING CLOSELY.
--- NOTE | 2019-03-19 19:00 | NUR ---
REPORT RECEIVED FROM BLAIR RANDLE. PT RESTING IN BED WITH HOB ELEVATED. EYES CLOSED AND NO SIGNS OF DISTRESS; AWAKENS TO VERBAL STIMULI; REMAINS CONFUSED; ORIENTED TO PERSON ONLY. RESPIRATIONS EVEN AND UNLABORED ON OXYGEN 2L VIA NC. NG TUBE TO RIGHT NARE AND SECURED TO NOSE; MODERATE AMOUNT OF BROWN GASTRIC CONTENT; CONNECTED TO LIS. BILATERAL SOFT WRIST RESTRAINTS ON; ABLE TO PLACE 2 FINGERS UNDER; GOOD CSM TO HANDS. SURGICAL DRESSING TO LEFT GROIN AREA WITH SHADOWING TO 100% OF THE DRESSING AND MODERATE AMOUNT OF BLOODY DRAINAGE DRAINING OUT OF LOWER PORTION; ONE STAPLE EXPOSED. DRESSING REINFORCED; NOT ACTIVELY DRAINING AT THIS TIME. BRADSHAW CATHETER PATENT AND DRAINGING TO BSDB DARK YELLOW URINE; LEG STRAP INTACT TO LEFT THIGH. SCDS TO BLE. VSS; TEMP 97.2. SAFETY MEASURES IN PLACE. NEEDS ANTICIPATE BY STAFF.
--- NOTE | 2019-03-19 19:30 | NUR ---
INCONTINENT OF LARGE LOOSE BOWEL MOVEMENT. BED BATH GIVEN WITH LINEN CHANGE; RESTRAINTS REMOVED FOR REPOSITIONING AND REAPPLYED. PT SOB WITH EXERTION AND EXPERIENCED WHEEZING TO UPPER RESPIRATORY DURING THIS TIME. OXYGEN SATURATION REMAINED IN THE 80'S FOR 10 MINUTES WITH HOB ELEVATED; OXYGEN TITRATED UP TO 3L NC. PT AWAKE AND VERBAL; C/O ABDOMINAL TENDERNESS. WILL CONTINUE TO MONITOR.
--- NOTE | 2019-03-19 22:26 | NUR ---
DILAUDID GIVEN FOR C/O PAIN; ANCEF INFUSING AT THIS TIME. PT NOW ASLEEP AFTER DILUADID. BP 142/61 HR 73.
[2019-03-20] VITALS (15 sets, daily range): BP systolic 93–173; BP diastolic 50–90
--- NOTE | 2019-03-20 00:15 | NUR ---
REPOSITIONED ONTO LEFT SIDE WITH PILLOWS; AWAKENS TO SAY THANK YOU, OTHERWISE KEEPS EYES CLOSED AND APPEARS RELAXED. BLOOD PRESSURE ELEVATED AT 158/68.
--- NOTE | 2019-03-20 02:30 | NUR ---
PT RESTING COMFORTABLY WITH NO SIGNS OF PAIN; DRESSING TO LEFT GROIN HAS MORE BLOODY DRAINAGE. NG TUBE CONTINUES TO PUT OUT BROWN GASTRIC CONTENT IN MODERATE AMOUNTS. REPOSITIONING EVERY 2 HOURS WITH RESTRAINT CHECKS. VSS. NEEDS ANTICIPATED BY STAFF.
[2019-03-20 05:07] LABS: HEMATOCRIT 32.4 % (39.0-50.0); HEMOGLOBIN 10.2 g/dl (14.0-18.0); IMMATURE GRANULOCYTES 0.3 % (0.0-5.0); MEAN CELL VOLUME 101.6 fL CALC (80.0-100.0); MEAN CORPUSCULAR HGB CONC 31.5 g/L CALC (32.0-36.0); NEUT# 7.9 thou/uL (1.82-7.42); RED BLOOD COUNT 3.19 mill/uL (4.70-6.10)
[2019-03-20 05:26] LABS: ANION GAP 10 (6-22 (CALC)); BUN 40 mg/dL (8-23); BUN/CREATININE RATIO 39 (12-20 (CALC)); CARBON DIOXIDE 24 mmol/l (22-30); CHLORIDE 113 mmol/l (95-108); GFR > 60 ML/MIN (>=60 (CALC)); GFR FOR AFR.AMER. > 60 ML/MIN (>=60 (CALC)); POTASSIUM 4.1 mmol/l (3.5-5.1); SODIUM 143 mmol/l (137-146)
--- NOTE | 2019-03-20 05:30 | NUR ---
TOTAL OF 300ML OF NG TUBE OUTPUT EMPTIED; 475ML OF URINE. DAILY WEIGHT OBTAINED 173.8 LBS.
--- NOTE | 2019-03-20 07:00 | NUR ---
PT RESTING IN BED WITH EYES CLOSED. AROUSES TO VERBAL STIMULI. PT IS ALERT AND ORIETNED TOSELF ONLY. REORIENTATION UNSUCCESSFUL. SHIFT ASSESSMENT COMPLETED AT THIS TIME.IV PATENT X1. BILAT SOFT WRIST RESTRAINTS IN PLACE FOR PATIENT SAFETY. CALL LIGHT IN REACH. WILL CONTINUE TO CLOSELY MONITOR.
--- NOTE | 2019-03-20 07:30 | NUR ---
PHONED DR REGALADO. RECEVIED NEW PATIENT ORDERS FOR DRESSING CHANGE, DIET, AND CLAMP NG
--- NOTE | 2019-03-20 07:37 | NUR ---
NG TUBE CLAMPED AT THIS TIME.
--- NOTE | 2019-03-20 07:45 | NUR ---
PT SET UP FOR AM MEAL
--- NOTE | 2019-03-20 08:14 | NUR ---
DR BREWER AT BEDSIDE AT THIS TIME
--- NOTE | 2019-03-20 09:45 | NUR ---
NG TUBE DC'D AT THIS TIME. PT TOLERATED WELL. DENIES NAUSEA AND VOMITTING. DRESSING CHANGE TO SURGICAL SITE. REMOVED PREVIOUS DRESSING NOTED TO BE SATURATED WITH BLOOD AND CLOTS NOTED. PLACED A DRY STERILE ABD PAD AND SECURED WITH TAPE. NO WARMTH OR REDNESS NOTED AT SURGICAL SITE. PT TOLERATED WELL.
--- NOTE | 2019-03-20 11:00 | NUR ---
O2 REMOVED AT THIS TIME. PT REMAINS O2 SATS >92%
--- NOTE | 2019-03-20 11:40 | NUR ---
PT SET UP FOR NOON MEAL.
--- NOTE | 2019-03-20 12:11 | NUR ---
SON AT BEDSIDE VISITING WITH PATIENT AT THIS TIME.
--- NOTE | 2019-03-20 14:06 | NUR ---
PT SITTING UP IN BED WATCHING TV AND CONVERSATING WITH SON AT BEDSIDE. RESP ARE EVEN AND UNLABORD. NO DISTRESS NOTED. CALL LIGHT IN REACH. WILL CONTINUE TO MONITOR.
--- NOTE | 2019-03-20 15:00 | NUR ---
IV SITE CHANGED. IV TUBING CHANGED. #20 LFA X 1 ATTEMPT. RAC IV DC'D CATH TIP INTACT. PT TOLERATED WELL.
--- NOTE | 2019-03-20 16:04 | NUR ---
PT RESTING IN BED WITH EYES CLOSED. RESP ARE EVEN AND UNLABORED. NO DISTRESS NOTED. CALL LIGHT IN REACH. WILL CONTINUE TO MONITOR.
--- NOTE | 2019-03-20 17:38 | NUR ---
PT SET UP FOR PM MEAL. TEMP RECHECK 101.2. VIKI MATA NOTIFIED.
--- NOTE | 2019-03-20 18:12 | NUR ---
PT RESTING INBED WATCHING TV. RESP ARE EVEN AND UNLABORED. NO DISTRESS NOTED. CALL LIGHT IN REACH. WILL CONTINUE TO MONITLOR.
--- NOTE | 2019-03-20 18:24 | NUR ---
REMP RECHECK 99.5
--- NOTE | 2019-03-20 19:00 | NUR ---
awake. confused. denies op pain. dsg to lt groin has old drainage. chief radiology shows sinus rhythm pvcs. #20 lfa ns infusing @ 20cchr. po fluids taken well. chahal cath in place urine cloudy yellow. fall precautions, bed alarm & wrist restraints cont.
--- NOTE | 2019-03-20 22:15 | NUR ---
pt removed dsg to lt groin incision. replace with abd pad.
--- NOTE | 2019-03-20 22:40 | NUR ---
pt yelling out loudly help help help. dilaudid 1mg ivp given.
--- NOTE | 2019-03-20 23:10 | NUR ---
eyes closed. no further yelling out.
[2019-03-21] VITALS (13 sets, daily range): BP systolic 97–172; BP diastolic 48–90
--- NOTE | 2019-03-21 00:01 | NUR ---
eyes closed. no distress. cardiac rehabilitation specialist shows sinus rhythm pvcs.
--- NOTE | 2019-03-21 02:00 | NUR ---
resting quietly. resps bob & unlabored. no apparent distress.
--- NOTE | 2019-03-21 04:00 | NUR ---
eyes closed. no distress. monitor car operator shows sinus rhythm pvcs.
--- NOTE | 2019-03-21 04:30 | NUR ---
lab here. blood drawn.
[2019-03-21 04:52] LABS: HEMATOCRIT 29.8 % (39.0-50.0); HEMOGLOBIN 9.6 g/dl (14.0-18.0); MEAN CELL VOLUME 100.3 fL CALC (80.0-100.0); MEAN CORPUSCULAR HGB 32.3 pG CALC (26.0-32.0); MEAN CORPUSCULAR HGB CONC 32.2 g/L CALC (32.0-36.0); RED BLOOD COUNT 2.97 mill/uL (4.70-6.10); RED CELL DISTRI WIDTH 13.7 % (11.5-15.5)
[2019-03-21 05:13] LABS: ANION GAP 10 (6-22 (CALC)); BUN 35 mg/dL (8-23); BUN/CREATININE RATIO 42 (12-20 (CALC)); CARBON DIOXIDE 24 mmol/l (22-30); CHLORIDE 110 mmol/l (95-108); CREATININE 0.8 mg/dL (0.7-1.3); GFR > 60 ML/MIN (>=60 (CALC)); GFR FOR AFR.AMER. > 60 ML/MIN (>=60 (CALC)); POTASSIUM 4.1 mmol/l (3.5-5.1); SODIUM 140 mmol/l (137-146)
--- NOTE | 2019-03-21 06:00 | NUR ---
eyes closed. no distress.
--- NOTE | 2019-03-21 06:45 | NUR ---
REPORT RECVD FROM KAREN GAXIOLA AT START OF SHIFT.
--- NOTE | 2019-03-21 07:22 | NUR ---
PT SLEEPING IN BED, APPEARS RESTFUL. DOOR CLOSED BUT CURTAINS OPEN FOR BETTER OBSERVATION.
--- NOTE | 2019-03-21 07:41 | NUR ---
PT A&O TO NAME ONLY. RESTRAINTS LOOSENED FOR BREAKFAST & TO TEST. PT FEEDING SELF BREAKFAST. SPEECH SLOW & SLURRED. PT ASKING IF HE HIT ANYONE. REPOSITIONED IN BED.
--- NOTE | 2019-03-21 08:23 | NUR ---
DR BREWER @BEDSIDE, ASSESSING PT.
--- NOTE | 2019-03-21 09:47 | NUR ---
TECH GIVING PT A BED BATH. PT STATES HE IS AT THE [employer] [facility] & JUST WANTS HIS HAIRCUT.
--- NOTE | 2019-03-21 11:00 | NUR ---
PT REFUSING NC- HE DOESNT LIKE THINGS IN HIS NOSE. WIPES/BLOWS NOSE FREQUENTLY. BREATHING EVEN/UNLABORED.
--- NOTE | 2019-03-21 12:30 | NUR ---
PT REFUSING LUNCH, STATES HE JUST CANT EAT ANYMORE. ASKED FOR A DOGGY BAG TO TAKE LEFT OVER FOOD TO HIS SON & DAUGHTER. PT DRANK ENSURE & TEA.
--- NOTE | 2019-03-21 13:22 | NUR ---
PTS SON @BEDSIDE. SON UPDATED ON ICU MOVING TO ER TRAUMA D/T CONSTRUCTION. SON STATES PT WILL NOT LIKE TO GO ANYWHERE BUT BACK TO [facility] AFTER DC. PT APPEARS TO BE RESTING PEACEFULLY.
--- NOTE | 2019-03-21 14:30 | NUR ---
PT REFUSING NC- HE DOESNT LIKE THINGS IN HIS NOSE. WIPES/BLOWS NOSE FREQUENTLY. BREATHING EVEN/UNLABORED.
--- NOTE | 2019-03-21 16:30 | NUR ---
pt awake, talking to son @bedside. pt given ice cream & ensure- ate all the ice cream, drank 1/2 the ensure.
--- NOTE | 2019-03-21 17:51 | NUR ---
PT WOKEN UP TO EAT DINNER. PT TALKATIVE, EATING.
--- NOTE | 2019-03-21 18:30 | NUR ---
REPORT FROM Ashish HOLLY RN. ASSUMED PT. CARE.
--- NOTE | 2019-03-21 19:30 | NUR ---
PT. MOVED AND SETTLED INTO ER TRAUMA MIDDLE BAY DOWNSTAIRS ICU PROPER BEING CLOSED DUE TO WATER SHUT OFF. PT. REORIENTED TO SITUATION. REMAINS STABLE AT THIS TIME. AWAKE, ALERT, ORIENTED TO PERSON ONLY. RESPS EVEN AND UNLABORED. BP/HR STABLE. MAE. GASTELUM. AFEBRILE AT 99.0. DENIES COMPLAINTS OF PAIN OR NEED. PROVIDED WITH WATER PER HIS REQUEST AT THIS TIME. WILL CONTINUE TO CLOSELY MONITOR.
--- NOTE | 2019-03-21 20:35 | NUR ---
RESTRAINTS REMOVED AT THIS TIME PT. REMAINS COOPERATIVE.
--- NOTE | 2019-03-21 22:14 | NUR ---
PT. RESTING IN BED IN NO DISTRESS. NO CALL LIGHT, BUT THERE IS NO CALL LIGHT AVAILABLE IN THE MIDDLE TRAUMA BAY IN BACK OF ER.
--- NOTE | 2019-03-21 23:54 | NUR ---
PT. REMAINS STABLE. REORIENTED TO SITUATION. PROVIDED WITH WATER. REPOSITIONED FOR COMFORT. BP/HR REMAIN STABLE. WILL CONTINUE TO MAINTAIN VISUAL CONTACT TO ASSIST PATIENT. DENIES OTHER COMPLAINTS OR NEEDS.
[2019-03-22] VITALS (12 sets, daily range): BP systolic 143–178; BP diastolic 63–96
--- NOTE | 2019-03-22 01:55 | NUR ---
PT. REMAINS PLEASANTLY CONFUSED. ORIENTED TO PERSON ONLY. ASSISTED TO BEDPAN. MODERATE BROWN LIQUID STOOL. CONTINUES TO DENY PAIN.
--- NOTE | 2019-03-22 03:15 | NUR ---
REMAINS CONFUSED, BUT EASILY REORIENTED TO SITUATION. PLACED BACK ON BEDPAN WITH SCANT LOOSE LIQUID BM AT THIS TIME. DENIES COMPLAINTS OF PAIN. PROVIDED WITH WATER PER HIS REQUEST.
--- NOTE | 2019-03-22 04:35 | NUR ---
REMAINS AFEBRILE AT THIS TIME. REMAINS AWAKE AND ORIENTED TO PERSON ONLY AND CONFUSED TO SITUATION. EASILY REORIENTED AND REMAINS COOPERATIVE AT THIS TIME. IV FLUIDS CONTINUE TO INFUSE AT KVO. DENIES COMPLAINTS OF PAIN.
--- NOTE | 2019-03-22 05:56 | NUR ---
PT. MEDICATED WITH TYLENOL FOR FEVER OF 100.8. DENIES COMPLAINTS OF PAIN OR NEED AT THIS TIME.RESPS EVEN AND UNLABORED. MAE. GASTELUM.
--- NOTE | 2019-03-22 06:45 | NUR ---
RECVD REPORT FROM BLAIR RYDER AT START OF SHIFT. ICU LOCATED IN ER TRAUMA BAYS D/T CHANGES IN ACTUAL ICU.
--- NOTE | 2019-03-22 07:52 | NUR ---
DR BREWER @BEDSIDE FOR ASSESSMENT. NEW ORDERS PLACED.
--- NOTE | 2019-03-22 08:30 | NUR ---
PT CONFUSED ABOUT SURROUNDINGS- KEEPS ASKING IF "THAT" WAS THERE YESTERDAY. THIS RN SPENDING TIME BEDSIDE WITH PT TO REORIENT.
--- NOTE | 2019-03-22 09:05 | NUR ---
PT ATTEMPTING TO GET OF BED, STATING "HE NEEDS TO GET OUT OF HERE".
--- NOTE | 2019-03-22 10:05 | NUR ---
PT OFF THE UNIT FOR CATSCAN.
--- NOTE | 2019-03-22 10:16 | NUR ---
RETURNED FROM [facility] BY . PT ABLE TO TRANSFER WITH ASSIST x1, UNSTEADY GAIT.
--- NOTE | 2019-03-22 10:24 | NUR ---
LINENS/GOWN CHANGED. PT GIVEN COMLETE BEDBATH WITH BRADSHAW CARE.
--- NOTE | 2019-03-22 11:22 | NUR ---
PT REFUSING LUNCH. TRAY LEFT ON BEDSIDE TABLE.
--- NOTE | 2019-03-22 11:30 | NUR ---
PT REPEATEDLY TRYING TO GET OUT OF BED. STATES HIS SON WILL BEAT ME UP WHEN HE GETS HERE, STATEMENT NONTHREATENING. ATTEMPS AT VERBAL DISTRACTION UNSUCCESSFUL, ADDITIONAL RAILING UP SEEMS TO MAKE PT FRUSTRATED. NO PHSYICAL AGGRESSION.
--- NOTE | 2019-03-22 12:43 | NUR ---
PT SLEEPING AT THIS TIME. PRIOR TO THAT, PT KEPT ASKING IF EVERYTHING WAS OK & TALKING ABOUT A BILL HE DIDNT KNOW HE HAD TO PAY.
--- NOTE | 2019-03-22 14:01 | NUR ---
PT DISLODGED IV. FAILED TO ESTABLISH IV x3, CALLED ER FOR ASSISTANCE. SON @[facility].
--- NOTE | 2019-03-22 14:35 | NUR ---
PT ASSISTED UP TO BSC FOR LARGE, BROWN, SOFT, BM
--- NOTE | 2019-03-22 14:50 | NUR ---
BARRIER CREAM APPLIED TO ITCHY RASH ON PTS BACK, WITH RELEIF. POWDER SPRINKLED ON PTS SHEETS PRIOR TO ASSISTING PT BACK TO BED.
--- NOTE | 2019-03-22 14:55 | NUR ---
U/A COLLECTED FROM BRADSHAW TUBING BY Y-SITE. STOOL COLLECTED AFTER BM. SENT TO LAB
[2019-03-22 15:37] LABS: URINE BILIRUBIN - DIPSTICK NEGATIVE (NEGATIVE); URINE BLOOD DIPSTICK LARGE (NEGATIVE); URINE COLOR YELLOW; URINE GLUCOSE - DIPSTICK NEGATIVE (NEGATIVE); URINE KETONE NEGATIVE (NEGATIVE); URINE LEUK ESTERASE NEGATIVE (Negative); URINE NITRITE - DIPSTICK NEGATIVE (Negative); URINE PROTEIN - DIPSTICK NEGATIVE (NEG-TRACE); URINE SPECIFIC GRAVITY 1.015; URINE UROBILINOGEN - DIPSTICK 0.2 E.U./dL (0.2)
[2019-03-22 15:52] LABS: URINE CLARITY HAZY
--- NOTE | 2019-03-22 16:06 | NUR ---
PT SLEEPING, APPEARS RESTFUL. VSS. WILL CONTINUE TO MONITOR.
--- NOTE | 2019-03-22 19:16 | NUR ---
REPORT RECEIVED FROM BLAIR CHAVEZ. PT SITTING UP IN BED HIGH FOWLERS DRINKING ENSURE; ALERT AND PLEASANTLY CONFUSED; ORIENTED TO PERSON ONLY. DENIES PAIN. RESPIRATIONS EVEN AND UNLABORED ON ROOM AIR; SPO2 91%. SAFETY MEASURES IN PLACE; NEEDS ANTICIPATED BY STAFF.
--- NOTE | 2019-03-22 20:19 | NUR ---
PT TRANSPORTED FROM TRAUMA ROOM TO ICU 5 VIA BED WITH ICU STAFF. VSS. WATER OFFERED. PT NOW RESTING SEMI FOWLERS WITH EYES CLOSED. SAFETY MEASURES IN PLACE.
--- NOTE | 2019-03-22 21:28 | NUR ---
PT TOOK MEDICATIONS WITHOUT DIFFICULTY. FLAGYL INFUSING AT THIS TIME; IV SITE APPEARS HEALTHY AND FLUSHES. PT ASKING WHEN HIS SON IS COMING TO PICK HIM UP; EASILY REORIENTED TO TIME AND PT APPEARS MORE RELAXED. NO OTHER REQUESTS.
[2019-03-23] VITALS (10 sets, daily range): BP systolic 113–169; BP diastolic 60–82
--- NOTE | 2019-03-23 01:42 | NUR ---
PT VERY RESTLESS FOR A FEW HOURS AFTER MEDICATIONS; CONTINUED TO THINK THAT HE WAS LEAVING SOON AND REMOVING ATTACHMENTS. REORIENTED SEVERAL TIMES. NOW RESTING QUIETLY WITH EYES CLOSED. BRADSHAW DRAINING CLOUDY YELLOW URINE. NEEDS ANTICIPATED BY STAFF.
--- NOTE | 2019-03-23 04:56 | NUR ---
PARTIAL BED BATH GIVEN WITH BRADSHAW CARE. PT REQUESTING SOMETHING TO DRINK; WATER PROVIDED.
--- NOTE | 2019-03-23 08:30 | NUR ---
PT RESTING IN BED, ASSISTED PT TO BSC, PT HAD A LARGE BM, PT UNSTEADY ON HIS FEET, NEEDS ASSISTANCE. PT ALERT TO SELF. DISCUSSED POC. PT ASSISTED TO RECLINER AT BEDSIDE, BRADSHAW IN PLACE, DRAINING TO GRAVITY, PT C/O ITCHYNESS TO HIS BACK, NOTED RED/RAISED RASH TO HIS ENTIRE BACK. BARRIER CREAM APPLIED, PT STATES RELIEF FROM CREAM. ASSESSMENT COMPLETED, CALL LIGHT IN REACH,CONTINUE TO MONITOR.
--- NOTE | 2019-03-23 09:38 | NUR ---
PT AT BEDSIDE WITH PATIENT.
--- NOTE | 2019-03-23 11:37 | NUR ---
PT SITTING IN RECLINER AT BEDSIDE. PT MEDICATED WITH BENADRYL FOR RASH TO HIS BACK, PT VOICES NO NEEDS OR COMPLAINTS AT THIS TIME. CALL LIGHT IN REACH,CONTINUE TO MONITOR.
--- NOTE | 2019-03-23 12:15 | NUR ---
PT SITTING IN RECLINER, ATE VERY MINIMAL LUNCH, PT REQUESTING TO LAY BACK IN BED. ASSISTED TO BED, 1000ML REMOVED FROM BRADSHAW BAG. DISCUSSED REMOVAL OF CATHETER, PT AGREES. BALLOON DEFLATED, CATHETER REMOVED AND INTACT, PT TOLERATED WELL. CAROL CARE COMPLETED, CALL LIGHT IN REACH, BED ALARM FOR SAFETY. CONTINUE TO MONITOR.
--- NOTE | 2019-03-23 12:40 | NUR ---
PT CALLED OUT NEEDS TO USE BATHROOM, PT ASSISTED TO BSC, PT VOIDED CLEAR YELLOW URINE, VOICES NO NEEDS OR COMPLAINTS, ASSISTED PT BACK TO BED. CALL LIGHT IN REACH, BED ALARM IN PLACE. CONTINUE TO MONITOR.
--- NOTE | 2019-03-23 13:48 | NUR ---
SON ARRIVED TO BEDSIDE
--- NOTE | 2019-03-23 14:22 | NUR ---
JAGUAR AND AT BEDSIDE DISCUSSING POC WITH PT AND SON. CONTINUE TO MONITOR.
--- NOTE | 2019-03-23 14:58 | NUR ---
PT ATE ALL HIS MAGIC CUP RECEIVED FROM [employer]
--- NOTE | 2019-03-23 19:10 | NUR ---
REPORT RECEIVED FROM KAREN SCHULTZ. PT RESTING IN BED ON RIGHT SIDE WITH EYES CLOSED AND NO SIGNS OF DISTRESS. RESPIRATIONS EVEN AND UNLABORED ON ROOM AIR. SAFETY MEASURES IN PLACE. CALL LIGHT WITHIN REACH. NEEDS ANTICIPATED BY STAFF.
--- NOTE | 2019-03-23 21:00 | NUR ---
PT ATTEMPTING TO GET OUT OF BED 3 TIMES SETTING OFF BED ALARM; ASSISTED WITH URINAL TO VOID AND REORIENTED TO TIME AND PLACE. AFTERWARDS PT IS THANKFUL AND SAYS, "CHANTEL."
--- NOTE | 2019-03-23 23:21 | NUR ---
PT FREQUENTLY ATTEMPTING TO GET OUT OF BED AND REMOVE ATTACHMENTS. PT EXPLAINED THE PURPOSE OF EACH ATTACHMENT AND CONTINUES TO PICK AT PULSE OX MONITOR. INSTRUCTED SEVERAL TIMES TO LEAVE PULSE OX ALONE AND PT STATES, "WHAT DOES IT MATTER I'M JUST GOING TO TAKE IT OFF WHEN YOU LEAVE THE ROOM ANYWAY." CURRENTLY 95% SPO2 ON ROOM AIR. LUNGS ARE CLEAR. WILL CONTINUE TO MONITOR.
[2019-03-24] VITALS (9 sets, daily range): BP systolic 100–177; BP diastolic 45–82
--- NOTE | 2019-03-24 00:22 | NUR ---
SCHEDULED BENEDRYL GIVEN WITH ICE WATER; PT SEEMS MORE RELAXED AND NOT ATTEMPTING TO REMOVE ATTACHMENTS. TEMP IS 99.7.
--- NOTE | 2019-03-24 01:00 | NUR ---
PT REMOVED IV SITE AND PULSE OX; ATTEMPTING TO CLIMB OVER BED RAILS. AGITATED AND COMBATIVE; PT ATTEMPTING TO KICK STAFF WHEN TRYING TO PUT HIS LEGS BACK IN THE BED. STATES, "I'M GETTING OUT OF HERE! I WANT TO SLEEP IN MY OWN BED." AGAIN PLACING LEGS OVER SIDE RAIL.
--- NOTE | 2019-03-24 02:09 | NUR ---
PT CONTINUES TO BE RESTLESS ATTEMPTING TO CLIMB OUT OF BED; ALERT WITH CONFUSION AND AGITATED. VSS. PT DENIES PAIN AND NEED TO USE BATHROOM. STATES HE WANTS TO GO HOME. NOT EASILY REORIENTED AT THIS TIME. ALL SAFETY MEASURES IN PLACE; BED LOW; ROOM WELL LIT; ALL POSSESSIONS WITHIN REACH INCLUDING CALL LIGHT; CURTAIN OPEN FOR GOOD VIEW OF PT.
--- NOTE | 2019-03-24 03:27 | NUR ---
NURSE HAS REMAINED AT BEDSIDE FOR CLOSER MONITORING; CONSTANT REDIRECTION NECESSARY FOR PT TO REMAIN IN BED. COMPLETE BED BATH ALSO GIVEN WITH LINEN CHANGE. PT COOPERATIVE, BUT STATES, "WHEN MY UNCLE COMES IN TODAY HEADS ARE GONNA ROLE." AFTER BATH PT IS LESS RESTLESS. VOIDED 175ML IN URINAL WITH ASSISTANCE. LEFT GROIN INCISION APPEARS HEATLHY WITH FIDEL INTACT. RASH TO BACK HAS NUMEROUS SMALL AREAS THAT ARE OPEN WITH SCANT BLOODY DRAINAGE ON SHEETS; SKIN PROTECTANT CREAM APPLIED TO FULL BACK. CREAM ALSO APPLIED TO GROIN AREA WHERE MODERATE REDNESS HAS DEVELOPED. WILL CONTINUE TO MONITOR.
--- NOTE | 2019-03-24 04:16 | NUR ---
UP TO BSC FOR VOID AND SMALL LOOSE BOWEL MOVEMENT.
--- NOTE | 2019-03-24 04:32 | NUR ---
NEW IV STARTED TO LAC; LABS OBTAINED; DILAUDID GIVEN. PT NOW RESTING WITH EYES CLOSED.
[2019-03-24 05:25] LABS: HEMATOCRIT 31.2 % (39.0-50.0); HEMOGLOBIN 10.1 g/dl (14.0-18.0); IMMATURE GRANULOCYTES 0.9 % (0.0-5.0); MEAN CORPUSCULAR HGB 32.1 pG CALC (26.0-32.0); MEAN CORPUSCULAR HGB CONC 32.4 g/L CALC (32.0-36.0); NEUT# 6.54 thou/uL (1.82-7.42); RED BLOOD COUNT 3.15 mill/uL (4.70-6.10); RED CELL DISTRI WIDTH 13.9 % (11.5-15.5)
[2019-03-24 05:39] LABS: BUN 28 mg/dL (8-23); BUN/CREATININE RATIO 28 (12-20 (CALC)); CHLORIDE 103 mmol/l (95-108); GFR > 60 ML/MIN (>=60 (CALC)); GFR FOR AFR.AMER. > 60 ML/MIN (>=60 (CALC)); SODIUM 137 mmol/l (137-146)
[2019-03-24 05:40] LABS: ANION GAP 9 (6-22 (CALC)); CARBON DIOXIDE 29 mmol/l (22-30)
--- NOTE | 2019-03-24 07:25 | NUR ---
PT RESTING IN BED, ASSISTED WITH REPOSITION FOR AM MEAL, PT ALERT TO SELF. DISCUSSED POC. PT HAS SHORT TERM MEMORY ISSUES SO REQUIRES FREQUENT REMINDERS/REDIRECTION. LEFT GROIN INCISION DUCT LAYER WITH FIDEL INTACT, INCISION IS WELL APPROXIMATED ADN DRY WITH NO DRNG AND NO S/S OF INFECTION NOTED. BRADSHAW IN PLACE, DRAINING TO GRAVITY, PT DENIES ITCHYNESS TO BACK, NOTED RED/RAISED RASH TO HIS ENTIRE BACK. BARRIER CREAM APPLIED BY PREVIOUS SHIFT, AM ASSESSMENT COMPLETED, SEE INTERVENTIONS, CALL LIGHT IN REACH,CONTINUE TO MONITOR.
--- NOTE | 2019-03-24 08:00 | NUR ---
LEFT AC IV ACCESS INTACT WITH IVF INFUSING ORDERED, SET UP ASSIST PROVIDED FOR AM MEAL, REMINDERS PROVIDED TO PT NEEDED, CALL OTTO WITHIN REACH.
--- NOTE | 2019-03-24 08:43 | NUR ---
PT TOLERATED MEAL WELL, RESTING WITH EYES CLOSED, BED ALARM REMAINS ACTIVIATED AND PT EASILY VISIBLE FROM NURSE STATION FOR SAFETY. NO COMPLINATS OFFERED AND NO S/S OF DISTRESS OR DISCOMFORT NOTED
--- NOTE | 2019-03-24 09:29 | NUR ---
PT TAKES PO MEDICATIONS WELL ADN W/O INCIDENT, WILL CONTINUE TO MONITOR.
--- NOTE | 2019-03-24 10:00 | NUR ---
PHYSICAL THERAPY AT BEDSIDE FOR TREATMENT.
--- NOTE | 2019-03-24 10:30 | NUR ---
MR FORD WAS MORE LUCID TODAY AND ABLE TO CONVERSE WITH ME WHILE CORRECTLY FOLLOWING INSTRUCTIONS. HE WAS STILL DISORIENTED OF PLACE AND TIME SOMEHOW. HE MANAGED TO SUPINE TO SIT WITH MIN A, STS WITH VERBAL CUES AND MIN A. HIS IMMEDIATE STANDING BALANCE WAS FAIR W/O RETROPULSION. HE THEN AMBULATED IN THE HALLWAY WITH RW AND MIN A X ~ 70 FT X 2. HE REQUIRED ASSISTANCE ON NAVIGATING THE WALKER AND ON TURNING WITH 2 OCCASIONS OF LOSING HIS BALANCE. HIS SPO2 WAS CHECKED PRIOR, DURING AND AFTER THE ACTIVITIES. HE DESATURATED TO 79% ON RM AIR DURING BUT INCREASED BACK UP TO 94% WITH VERBAL INSTRUCTIONS ON RESPIRATION. HE ALSO DID 10 REPS OF STS WITH A WALKER FOR SUPPORT AND SBA FROM THERAPIST. PT TOLERATED ALL THE ACTIVITIES WELL, NO SOB WAS NOTED. ADVISED NURSE SANDRA SANTOS, ACKNOWLEDGED.
--- NOTE | 2019-03-24 10:36 | NUR ---
[facility]: 16 POINTS PT WILL BENEFIT FROM IN-PT REHAB OR FAISAL WITH HOME HEALTH P.T.
--- NOTE | 2019-03-24 11:35 | NUR ---
SET UP ASSIST FOR AFTERNOON MEAL PROVIDED, PT REMAINS SITTINGUP IN RECLINER SINCE P.T. TREATMENT. CALL OTTO WITHIN REACH EASILY VISIBLE FROM NURSES STATION FOR SAFETY
--- NOTE | 2019-03-24 12:15 | NUR ---
PT SITTING UP IN RECLINER AT BEDSIDE SINCE P.T. WORKED WITH PT, TOLERATING WELL, APPETITE FIAR TO GOOD, I.S. EDUCATION DONE EARLIER BY RAnastacioT.SAFETY MEASURES REINFORCED.
--- NOTE | 2019-03-24 12:22 | NUR ---
PT ASSISTED BACK TO BED, RASH ON BACK REMAINS RED WITH BROKEN PUSTULES AND PT COMPLAINTS OF ITCHING, MEDICATED WITH BENADRYL RTC ORDERED. SOME MODERATE FORESKIN EDMEA NOTED STILL ABLE TO RETRACT FORESKIN, WILL CONTINUE TO MONITOR.
--- NOTE | 2019-03-24 13:59 | NUR ---
, SON AND CASE MGMT AT BEDSIDE FOR EVAL AND TO DISCUSS D/C PLAN, WILL CONTINUE TO MONITOR.
--- NOTE | 2019-03-24 14:16 | NUR ---
PER SON PT IS AGREEABLE TO REHAB FOR SHORT TERM. CASE MGMT TO COME SPEAK WITH THEM AGAIN
--- NOTE | 2019-03-24 14:21 | NUR ---
CASE MGMT AT BEDSIDE WITH PT/SON
--- NOTE | 2019-03-24 16:00 | NUR ---
PT ANITHA INTERMITTENLY, AWARE OF PLANNED D/C TO REHAB TODAY CASE MGMT TO NOTIFY SON PER ART. IV ACCESS REMOVED INTACT.
--- NOTE | 2019-03-24 16:59 | NUR ---
PT DOZING, NO S/S OF IDTRESS OR DISCOMFROT NOTED, PLANNED P/U TIME FROMDH&R 1800 PER CASE MGMT, WILL CONTINUE TO MONITOR.
--- NOTE | 2019-03-24 18:26 | NUR ---
CONTINUE TO AWAIT REHAB FOR JOINER HELPER TOLERATED PM MEAL WELL
--- NOTE | 2019-03-24 19:15 | NUR ---
modesto from [facility]. d/c'd per ron.
== END 2019-03-24 19:15 | DRG 351 ==
LOC: ED 13:17 → ED-I 18:00 → ED 18:11 → ICU 18:12 → MS2 18:12 → ICU 19:20
PROVIDERS: Family Medicine; Nurse Practitioner Family; ADMIT Internal Medicine; ATTEND Internal Medicine
PROC: 0YQ60ZZ Repair Left Inguinal Region, Open Approach (ICD-10-PCS; principal; 2019-03-19)
DX: A08.4 Viral intestinal infection, unspecified (principal); G93.40 Encephalopathy, unspecified; I50.22 Chronic systolic (congestive) heart failure; K40.30 Unilateral inguinal hernia, with obstruction, without gangrene, not specified as recurrent; K56.609 Unspecified intestinal obstruction, unspecified as to partial versus complete obstruction; E86.0 Dehydration; L50.9 Urticaria, unspecified; M62.81 Muscle weakness (generalized); I95.9 Hypotension, unspecified; I25.10 Atherosclerotic heart disease of native coronary artery without angina pectoris; J43.9 Emphysema, unspecified; I25.5 Ischemic cardiomyopathy; F03.90 Unspecified dementia, unspecified severity, without behavioral disturbance, psychotic disturbance, mood disturbance, and anxiety; I25.2 Old myocardial infarction; Z86.73 Personal history of transient ischemic attack (TIA), and cerebral infarction without residual deficits; Z87.891 Personal history of nicotine dependence
CPT/HCPCS: C9290; J0131; J0692; Q9967; S0164

== ENCOUNTER 2020-11-22 18:15 | Observation (INO) | payer MEDICARE, OTHER, BC ==
[~2020-11-22] VITALS: Ht 175.3 cm; Wt 71.0 kg
[~2020-11-22 18:15] MED LIST changes: +CARVEDILOL25 MG PO; +LISINOPRIL20 MG PO; +POTASSIUM CHLO10 MEQ PO; +QUETIAPINE FUMA25 MG PO; +VITAMIN B-12500 MCG PO
[2020-11-22 18:50] LABS: HEMATOCRIT 37.9 % (39.0-50.0); HEMOGLOBIN 12.6 g/dl (14.0-18.0); IMMATURE GRANULOCYTES 0.2 % (0.0-5.0); MEAN CELL VOLUME 100.5 fL CALC (80.0-100.0); MEAN CORPUSCULAR HGB 33.4 pG CALC (26.0-32.0); MEAN CORPUSCULAR HGB CONC 33.2 g/dL CAL (32.0-36.0); NEUT# 3.5 thou/uL (1.82-7.42); RED BLOOD COUNT 3.77 mill/uL (4.70-6.10); RED CELL DISTRI WIDTH 13.1 % (11.5-15.5)
[2020-11-22 19:14] LABS: ALBUMIN 3.9 g/dL (3.2-5.0); ALKALINE PHOSPHATASE 74 u/l (38-126); ANION GAP 12 (6-22 (CALC)); BILIRUBIN, TOTAL 0.6 mg/dL (0.0-1.4); BUN 19 mg/dL (8-23); BUN/CREATININE RATIO 19 (12-20 (CALC)); CARBON DIOXIDE 27 mmol/l (22-30); CHLORIDE 99 mmol/l (95-108); GFR > 60 ML/MIN (>=60 (CALC)); GFR FOR AFR.AMER. > 60 ML/MIN (>=60 (CALC)); LIPASE 83 u/l (23-300); MAGNESIUM 1.8 mg/dL (1.6-2.3); SGOT/AST 23 u/l (19-48); SODIUM 134 mmol/l (137-146); TOTAL PROTEIN 6.8 g/dL (6.3-8.2)
[2020-11-23 00:30] VITALS: BP 143/77
[2020-11-23 04:00] VITALS: BP 164/82
[2020-11-23 08:52] VITALS: BP 137/70
[2020-11-23 11:16] VITALS: BP 150/79
[2020-11-23 11:23] LABS: URINE BILIRUBIN - DIPSTICK NEGATIVE (NEGATIVE); URINE BLOOD DIPSTICK SMALL (NEGATIVE); URINE COLOR YELLOW; URINE GLUCOSE - DIPSTICK NEGATIVE (NEGATIVE); URINE KETONE 15 mg/dL (NEGATIVE); URINE LEUK ESTERASE NEGATIVE (NEGATIVE); URINE PH 5.5 (4.5-8.0); URINE PROTEIN - DIPSTICK NEGATIVE (NEG-TRACE)
[2020-11-23 11:24] LABS: URINE NITRITE - DIPSTICK NEGATIVE (Negative)
[2020-11-23 11:25] LABS: URINE RBC 0-2 RBC/hpf (0-5)
[2020-11-23 16:47] VITALS: BP 116/60
[2020-11-23 19:00] VITALS: BP 138/51
[2020-11-24 04:00] VITALS: BP 102/41
[2020-11-24 07:42] VITALS: BP 133/51
[2020-11-24 14:50] VITALS: BP 105/45
[2020-11-24 19:25] VITALS: BP 133/71
[2020-11-25 05:11] VITALS: BP 90/45
[2020-11-25 07:32] VITALS: BP 132/50
[2020-11-25 09:34] VITALS: BP 132/50
== END 2020-11-25 18:10 ==
LOC: ED 18:15 → ED-I 22:47 → ED 23:03 → MS2 23:04
PROVIDERS: Family Medicine; ADMIT Hospitalist; ATTEND Hospitalist
DX: U07.1 COVID-19 (principal); F03.90 Unspecified dementia, unspecified severity, without behavioral disturbance, psychotic disturbance, mood disturbance, and anxiety; I25.10 Atherosclerotic heart disease of native coronary artery without angina pectoris; I50.9 Heart failure, unspecified; J43.9 Emphysema, unspecified; I25.5 Ischemic cardiomyopathy; I25.2 Old myocardial infarction; T14.8XXA Other injury of unspecified body region, initial encounter; W19.XXXA Unspecified fall, initial encounter; Y92.239 Unspecified place in hospital as the place of occurrence of the external cause; Z86.73 Personal history of transient ischemic attack (TIA), and cerebral infarction without residual deficits; Z88.0 Allergy status to penicillin; Z87.891 Personal history of nicotine dependence
CPT/HCPCS: G0378; J2060; Q9967

== ENCOUNTER 2022-06-06 11:04 | Inpatient (IN) | payer MEDICARE, OTHER ==
[2022-06-06] VITALS (25 sets, daily range): BP systolic 92–151; BP diastolic 39–82
[~2022-06-06] VITALS: Ht 175.3 cm; Wt 68.0 kg
--- NOTE | 2022-06-06 11:04 | NUR ---
PT ARRIVED VIA EMS, ALF EMPLOYEE REPORTED FINDING PT SLUMPED OVER IN PATIO CHAIR AND UNRESPONSIVE FOR ABOUT TEN MINUTES. REPORT INITIAL BP 51/34, BOLUS GIVEN IN THE FIELD, LEFT AC 20G PLACED. EMS REPORTED BP 111/68. PT STABLE. A/OX2, CALM AND COOPERATIVE. VITALS NOTED. DENIES PAIN, SOB ON O2 3LNC, OR DISCOMFORT. SCAB NOTED ON LEFT FOREHEAD, UPPER EXTREMITIES BRUISED. SKIN INTACT. WEAKNESS NOTED. EKG DONE, LAB AND MICRO SENT TO LAB. FALL AND SAFETY PRECAUTIONS IN PLACE. CALL LIGHT WITHIN REACH.
[2022-06-06] MEDS ORDERED: ALPRAZOLAM0.5 MG PO (11:26)
[2022-06-06] MEDS ORDERED: ACETAMINOP160 MG/5 M PO (11:26)
[2022-06-06] MEDS ORDERED: ALLOPURINOL100 MG PO (11:27)
[2022-06-06 11:55] LABS: BASO% 0.3 % (0-3); EOS% 0.8 % (0-8); HEMATOCRIT 35.5 % (39.0-50.0); HEMOGLOBIN 11.3 g/dl (14.0-18.0); LYMPH% 12.1 % (15-41); MEAN CELL VOLUME 102.3 fL CALC (80.0-100.0); MEAN CORPUSCULAR HGB 32.6 pG CALC (26.0-32.0); MEAN CORPUSCULAR HGB CONC 31.8 g/dL CAL (32.0-36.0); MONO% 6.4 % (2-13); NEUT# 4.79 thou/uL (1.82-7.42); NEUT% 80.4 % (42-76); RED BLOOD COUNT 3.47 mill/uL (4.70-6.10); RED CELL DISTRI WIDTH 13.9 % (11.5-15.5)
--- NOTE | 2022-06-06 12:00 | NUR ---
PT TO RADIOLOGY
[2022-06-06 12:09] LABS: ALBUMIN 3.5 g/dL (3.2-5.0); ALKALINE PHOSPHATASE 82 u/l (38-126); ANION GAP 8 (6-22 (CALC)); BILIRUBIN, TOTAL 0.6 mg/dL (0.2-1.3); BUN 25 mg/dL (8-23); BUN/CREATININE RATIO 21 (12-20 (CALC)); CARBON DIOXIDE 30 mmol/l (22-30); CHLORIDE 104 mmol/l (95-108); CREATININE 1.2 mg/dL (0.7-1.3); ETHYL ALCOHOL 0 mg/dl (0-30); GFR FOR AFR.AMER. > 60 ML/MIN (>=60 (CALC)); GFR OTHER RACES 57 ML/MIN (>=60 (CALC)); POTASSIUM 4.4 mmol/l (3.5-5.1); SGOT/AST 21 u/l (19-48); SODIUM 138 mmol/l (137-146)
[2022-06-06] MEDS ORDERED: NITROGLYCER0.4 MG SL (12:36)
--- NOTE | 2022-06-06 12:49 | NUR ---
URINE SAMPLE COLLECTED VIA STRAIGHT CATH. 800 ML URINE
[2022-06-06 13:33] LABS: URINE BILIRUBIN - DIPSTICK NEGATIVE (NEGATIVE); URINE BLOOD DIPSTICK NEGATIVE (NEGATIVE); URINE CLARITY CLEAR; URINE COLOR YELLOW; URINE GLUCOSE - DIPSTICK NEGATIVE (NEGATIVE); URINE KETONE NEGATIVE (NEGATIVE); URINE LEUK ESTERASE NEGATIVE (Negative); URINE NITRITE - DIPSTICK NEGATIVE (Negative); URINE PROTEIN - DIPSTICK NEGATIVE (NEG-TRACE); URINE SPECIFIC GRAVITY 1.015; URINE UROBILINOGEN - DIPSTICK 0.2 E.U./dL (0.2)
--- NOTE | 2022-06-06 13:41 | NUR ---
FAMILY AT BEDSIDE. DR SALDANA UPDATED FAMILY. PT PENDING ADMISSION.
--- NOTE | 2022-06-06 15:49 | NUR ---
PT ASSISTED TO URINAL. WEAK AND UNSTEADY. VOID 300 ML
--- NOTE | 2022-06-06 16:59 | NUR ---
PATIENT TRANSPORTED VIA STRETCHER WITH TECH AND SON AT BEDSIDE, REPORT CALLED IN BY BLAIR VANEGAS; ALL QUESTIONS ANSWERED. PLAN OF CARE REVIEWED WITH PT AND SON. PT ORIENTED TO ROOM AND ROOM SAFETY. CALL LIGHT AND PERSONAL BELONGINGS WITHIN REACH. BED ALARM ACTIVE/BRAKES APPLIED/BED IN LOWEST POSITION. WILL CONTINUE TO MONITOR.
--- NOTE | 2022-06-06 19:28 | NUR ---
PT FOUND AMBULATING IN HALLWAY, NO SIGNS OF DISTRESS NOTED, RESP EVEN AND UNLABORED. PT AMBULATED WITH STEADY SHUFFLED GAIT, PT ASSISTED BACK TO HIS ROOM AND SAT ON SIDE OF BED. PT CONFUSED ASKING WHERE HE IS AND THAT HE WANTS TO WALK THE HALLWAYS, REORIENTED PT TO ROOM. NOTED PT IV REMOVED, CATHETER INTACT. NO BLEEDING NOTED TO IV SITE. BED ALARM PLACED FOR SAFETY, ASSISTED PT IN BED, CALL LIGHT IN REACH, CONTINUE TO MONITOR.
--- NOTE | 2022-06-06 20:24 | NUR ---
PT RESTING IN BED WATCHING TV, NO SIGNS OF DISTRESS NOTED, RESP EVEN AND UNLABORED. PT MEDICATED PER MAR, TOLERATED WELL. ATTEMPTED TO DO AN ASSESSMENT ON PT, PT DECLINED DID NOT ALLOW PLASTIC SURGERY ASSISTANT TO LISTEN TO LUNG SOUNDS, ATTEMPTED NEW IV ACCESS, PT VERY IRRITABLE AT THIS TIME, PT IS REMAINING IN BED, BED ALARM FOR SAFETY, MEDICATED PER MAR, WILL RETURN AT LATER TIME TO ACCESS IV SITE. CALL LIGHT IN REACH, CONTINUE TO MONITOR.
--- NOTE | 2022-06-06 23:51 | NUR ---
PT CALM AT THIS TIME, DISCUSSED IV SITE, PT PLEASANT AND AGREED. IV ACCESS TO TYSHAWN X1 ATTEMPT. PT TOLERATED WELL. CALL LIGHT IN REACH,BED ALARM FOR SAFETY, CONTINUE TO MONITOR.
[2022-06-07] VITALS (7 sets, daily range): BP systolic 88–146; BP diastolic 54–77
--- NOTE | 2022-06-07 04:00 | NUR ---
PT REMOVED HIS HEART MONITOR. NOTED IV DISLODGED, CATHETER INTACT. HEART MONITOR REPLACED. PT REMAINS CONFUSED. BED ALARM FOR SAFETY, CALL LIGHT IN REACH, CONTINUE TO MONITOR.
[2022-06-07 04:50] LABS: BASO% 0.2 % (0-3); EOS% 3.8 % (0-8); HEMOGLOBIN 11.2 g/dl (14.0-18.0); MEAN CELL VOLUME 102.6 fL CALC (80.0-100.0); MEAN CORPUSCULAR HGB 32.8 pG CALC (26.0-32.0); MONO% 8.2 % (2-13); NEUT# 2.95 thou/uL (1.82-7.42); NEUT% 65.8 % (42-76); RED BLOOD COUNT 3.41 mill/uL (4.70-6.10); RED CELL DISTRI WIDTH 13.9 % (11.5-15.5)
[2022-06-07 05:09] LABS: ALBUMIN 3.4 g/dL (3.2-5.0); ALKALINE PHOSPHATASE 88 u/l (38-126); ANION GAP 9 (6-22 (CALC)); BUN 23 mg/dL (8-23); BUN/CREATININE RATIO 22 (12-20 (CALC)); CARBON DIOXIDE 28 mmol/l (22-30); CHLORIDE 105 mmol/l (95-108); GFR FOR AFR.AMER. > 60 ML/MIN (>=60 (CALC)); GFR OTHER RACES > 60 ML/MIN (>=60 (CALC)); MAGNESIUM 2.1 mg/dL (1.6-2.3); POTASSIUM 3.8 mmol/l (3.5-5.1); SGOT/AST 20 u/l (19-48); SODIUM 139 mmol/l (137-146)
--- NOTE | 2022-06-07 08:00 | NUR ---
ASSUMED CARE OF PT. PT ALERT TO SELF ONLY. COULD NOT REMEMBER DATE OF . SPEECH IS GARBLED AT TIMES. HARD OF HEARING. PT RESTING IN BED. PER STOKER INSTALLER NURSE PT DID NOT REST WELL LAST NIGHT. REMOVED SEVERAL IV'S, AND ATTEMPTED TO LEAVE ROOM MULTIPLE TIMES. CALL LIGHT WITHIN REACH. BED IN LOWEST POSITION, BED ALARM ON.
--- NOTE | 2022-06-07 11:31 | NUR ---
PT DISORIENTED. EXITING THE ROOM. TOOK PT FOR WALK. DIFFICULT TO ORIENT BACK TO ROOM. SITIING WITH PT IN HALLWAY TILL PT DEESCALATES AND ABLE TO TAKE BACK TO ROOM.
[2022-06-07] MEDS ORDERED: DOXYCYCLINE100 MG PO (11:35)
--- NOTE | 2022-06-07 13:00 | NUR ---
PT BEING DISCHARGE. SPOKE WITH NURSE AT [facility] AND INFORMED HER PT IS BEING DISCHARGED. PER HER, PT WILL NOT BE ABLE TO START DOXY IN THE AM. SPOKE WITH [facility] PALACIOS WHO STATED IS OKAY FOR PT TO START DOXY IN THE AFTERNOON. PT TO HAVE LEVAQUIN INFUSION BEFORE DISCHARGED. SPOKE WITH PT'S SON WHO WILL BE TRANSPORTING PT BACK TO THE FACILITY.
== END 2022-06-07 15:00 | DRG 195 ==
LOC: ED 11:04 → ED-I 12:30 → ED 12:48 → ED-I 12:49 → MS2 16:17
PROVIDERS: Emergency Medicine; ADMIT Internal Medicine; ATTEND Internal Medicine
DX: J18.9 Pneumonia, unspecified organism (principal); F03.90 Unspecified dementia, unspecified severity, without behavioral disturbance, psychotic disturbance, mood disturbance, and anxiety; I50.9 Heart failure, unspecified; J43.9 Emphysema, unspecified; I25.5 Ischemic cardiomyopathy; I25.10 Atherosclerotic heart disease of native coronary artery without angina pectoris; I25.2 Old myocardial infarction; Z87.891 Personal history of nicotine dependence; Z86.73 Personal history of transient ischemic attack (TIA), and cerebral infarction without residual deficits; Z20.822 Contact with and (suspected) exposure to COVID-19
CPT/HCPCS: J1956

== ENCOUNTER 2022-10-16 10:09 | Emergency (ER) | payer MEDICARE, OTHER ==
[~2022-10-16] VITALS: Ht 175.3 cm; Wt 68.9 kg
[2022-10-16] VITALS (11 sets, daily range): BP systolic 79–135; BP diastolic 48–103
[~2022-10-16 10:09] MED LIST changes: +ACETAMINOP160 MG/5 M PO; +ALLOPURINOL100 MG PO; +ALPRAZOLAM0.5 MG PO; +DOXYCYCLINE100 MG PO; +NITROGLYCER0.4 MG SL
[2022-10-16] MEDS ORDERED: MILK OF MAGNES7.75 % (10:54)
[2022-10-16] MEDS ORDERED: COLACE100 MG PO (10:55)
[2022-10-16 11:27] LABS: BASO% 0.2 % (0-3); EOS% 3.2 % (0-8); HEMATOCRIT 33.3 % (39.0-50.0); HEMOGLOBIN 10.5 g/dl (14.0-18.0); IMMATURE GRANULOCYTES 0.3 % (0.0-5.0); LYMPH% 11.6 % (15-41); MEAN CELL VOLUME 101.5 fL CALC (80.0-100.0); MEAN CORPUSCULAR HGB CONC 31.5 g/dL CAL (32.0-36.0); NEUT# 4.63 thou/uL (1.82-7.42); NEUT% 78.7 % (42-76); RED BLOOD COUNT 3.28 mill/uL (4.70-6.10); RED CELL DISTRI WIDTH 13.3 % (11.5-15.5)
[2022-10-16 11:40] LABS: ALKALINE PHOSPHATASE 76 u/l (38-126); ANION GAP 9 (6-22 (CALC)); BILIRUBIN, TOTAL 0.5 mg/dL (0.2-1.3); BUN 21 mg/dL (8-23); BUN/CREATININE RATIO 21 (12-20 (CALC)); CARBON DIOXIDE 29 mmol/l (22-30); CHLORIDE 106 mmol/l (95-108); GFR FOR AFR.AMER. > 60 ML/MIN (>=60 (CALC)); GFR OTHER RACES > 60 ML/MIN (>=60 (CALC)); POTASSIUM 4.2 mmol/l (3.5-5.1); SGOT/AST 18 u/l (19-48); SODIUM 139 mmol/l (137-146); TOTAL PROTEIN 5.2 g/dL (6.3-8.2)
[2022-10-16 11:41] LABS: ALBUMIN 2.9 g/dL (3.2-5.0)
[2022-10-16 11:50] LABS: ACT PARTIAL THROMBO TIME 25.4 SECONDS (20.0-32.5); INTERNATIONAL NORMALIZED RATIO 1.1 RATIO (0.7-1.3); PROTHROMBIN TIME 10.7 SECONDS (9.0-12.5)
== END 2022-10-16 13:49 ==
LOC: ED 10:09
PROVIDERS: Family Medicine
DX: S72.141A Displaced intertrochanteric fracture of right femur, initial encounter for closed fracture (principal); I50.9 Heart failure, unspecified; J43.9 Emphysema, unspecified; I25.5 Ischemic cardiomyopathy; I25.2 Old myocardial infarction; W01.0XXA Fall on same level from slipping, tripping and stumbling without subsequent striking against object, initial encounter; Y92.129 Unspecified place in nursing home as the place of occurrence of the external cause; Z86.73 Personal history of transient ischemic attack (TIA), and cerebral infarction without residual deficits
CPT/HCPCS: J2060